=== PATIENT | male | born 1970 | race African-American/Black ===

== ENCOUNTER 2017-04-07 19:36 | Emergency (ER) | payer SELFPAY ==
[2017-04-07] MEDS ORDERED: Lidocaine 1% 20 ML MDV INJECT ONE (21:24)
[2017-04-07] MEDS ORDERED: Acetaminophen/HYDROcodone 325-7.5 MG Tab PO STA (22:03)
--- NOTE | 2017-04-07 22:03 | EDM.PDOC ---
ED HPI GENERAL MEDICAL PROBLEM - General Chief Complaint: Lower Extremity Injury/Pain Stated Complaint: PAIN/SWOLLEN RT FOOT Time Seen by Provider: 04/07/17 22:02 Source of Information: Reports: Patient - History of Present Illness INITIAL COMMENTS - FREE TEXT/NARRATIVE: HISTORY AND PHYSICAL: History of present illness: [Patient presents with right great toe pain, there is mild warmth nor redness some fluctuance over the toe proximal phalanx, denies history of gout. There is some language barrier I did jennifer an area of serious fluid and obtained a wound culture to follow-- No fever nausea vomiting chills sweats he denies trauma, patient denies working outside her getting the foot cold such as frostbite as he has largely been indoors for the last 2 months as he has not been working ] Review of systems: As per history of present illness and below otherwise all systems reviewed and negative. Past medical history: As per history of present illness and as reviewed below otherwise noncontributory. Surgical history: As per history of present illness and as reviewed below otherwise noncontributory. Social history: No reported history of drug or alcohol abuse. Family history: As per history of present illness and as reviewed below otherwise noncontributory. Physical exam: HEENT: Atraumatic, normocephalic, pupils reactive, negative for conjunctival pallor or scleral icterus, mucous membranes moist, throat clear, neck supple, nontender, trachea midline. Lungs: Clear to auscultation, breath sounds equal bilaterally, chest nontender. Heart: S1S2, regular, negative for clicks, rubs, or JVD. Abdomen: Soft, nondistended, nontender. Negative for masses or hepatosplenomegaly. Negative for costovertebral tenderness. Pelvis: Stable nontender. Genitourinary: Deferred. Rectal: Deferred. Extremities: Atraumatic, negative for cords or calf pain. Neurovascular unremarkable. Neuro: Awake, alert, oriented. Cranial nerves II through XII unremarkable. Cerebellum unremarkable. Motor and sensory unremarkable throughout. Exam nonfocal. Skin as per history of present illness otherwise unremarkable Diagnostics: [CBC, uric acid Wound culture X-ray right foot ] Therapeutics: [Carney 7.5 by mouth now Lidocaine 1% Neosporin Telfa bandaging After area is cleansed did jennifer the fluctuant area approximately 1 inch diameter draining serous fluid no exudates, culture was obtained no complication no complaint Bactrim double strength by mouth twice a day #20 no refill Carney 5 per 325 one by mouth every 6 when necessary #20 no refill ] Impression: [Cellulitis] Right great toe pain-uric acid normal Definitive disposition and diagnosis as appropriate pending reevaluation and review of above. right big toe Pain Score (Numeric/FACES): 9 - Related Data Allergies Allergy/AdvReac Type Severity Reaction Status Date / Time No Known Allergies Allergy Verified 04/07/17 20:23 Home Meds: Home Meds . [No Known Home Meds] 04/07/17 [History] Past Medical History - Past Health History Medical/Surgical History: Denies Medical/Surgical History Cardiovascular History: Reports: Hypertension. 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 Musculoskeletal History: Reports: None Psychiatric History: Reports: None Hematologic History: Reports: None Immunologic History: Reports: None Oncologic (Cancer) History: Reports: None Social & Family History - Family History Family Medical History: Noncontributory - Tobacco Use Smoking Status *Q: Never Smoker Second Hand Smoke Exposure: No - Alcohol Use Days Per Week of Alcohol Use: 0 Number of Drinks Per Day: 0 Total Drinks Per Week: 0 - Recreational Drug Use Recreational Drug Use: No Drug Use in Last 12 Months: No Review of Systems - Review of Systems Review Of Systems: ROS reveals no pertinent complaints other than HPI. ED EXAM, GENERAL - Physical Exam Exam: See Below Course - Vital Signs Last Recorded V/S: Last Vital Signs Temp 98 F 04/07/17 19:36 Pulse 88 04/07/17 19:36 Resp 18 04/07/17 19:36 BP 163/92 H 04/07/17 19:36 Pulse Ox 98 04/07/17 19:36 - Orders/Labs/Meds Orders: Active Orders 24 hr Category Date Time Status Foot Comp Min 3V Rt [CR] Stat Exams 04/07/17 20:21 Taken Labs: Laboratory Tests 04/07/17 04/07/17 Range/Units 20:30 20:30 WBC 7.21 (4.0-11.0) K/uL RBC 4.79 (4.50-5.90) M/uL Hgb 13.6 (13.0-17.0) g/dL Hct 40.2 (38.0-50.0) % MCV 83.9 (80.0-98.0) fL MCH 28.4 (27.0-32.0) pg MCHC 33.8 (31.0-37.0) g/dL RDW Std Deviation 45.2 (28.0-62.0) fl RDW Coeff of April 15 (11.0-15.0) % Plt Count 252 (150-400) K/uL MPV 9.50 (7.40-12.00) fL Neut % (Auto) 48.9 (48.0-80.0) % Lymph % (Auto) 40.1 H (16.0-40.0) % Daniels % (Auto) 9.2 (0.0-15.0) % Eos % (Auto) 1.5 (0.0-7.0) % Baso % (Auto) 0.3 (0.0-1.5) % Neut # (Auto) 3.5 (1.4-5.7) K/uL Lymph # (Auto) 2.9 H (0.6-2.4) K/uL Daniels # (Auto) 0.7 (0.0-0.8) K/uL Eos # (Auto) 0.1 (0.0-0.7) K/uL Baso # (Auto) 0.0 (0.0-0.1) K/uL Nucleated RBC % 0.0 /100WBC Nucleated RBCs # 0 K/uL Uric Acid 5.0 (2.6-7.2) mg/dL Meds: Medications Discontinued Medications Generic Name Dose Route Start Last Admin Trade Name Freq PRN Reason Stop Dose Admin Hydrocodone Bitart/Acetaminophen 1 tab 04/07/17 22:03 Carney 325-7.5 Mg PO 04/07/17 22:04 NOW STA Bacitracin 1 dose 04/07/17 22:04 Bacitracin Oint 1 Gm TOP 04/07/17 22:05 ONETIME ONE Lidocaine HCl 20 ml 04/07/17 21:24 04/07/17 22:06 Xylocaine 1% INJECT 04/07/17 21:25 20 ml ONETIME ONE Administration Departure - Departure Time of Disposition: 22:09 Disposition: Home, Self-Care 01 Condition: Good Clinical Impression: Cellulitis - Discharge Information Referrals: PCP,None [Primary Care Provider] - Forms: ED Department Discharge Additional Instructions: Medication as prescribed Return to ER if symptoms persist or worsen Follow-up with primary care Sunday or Sunday ER referral will be provided for primary follow-up [facility] - Primary Care [address] [place] [id number] The following information is given to patients seen in the emergency department who are being discharged to home. This information is to outline your options for follow-up care. We provide all patients seen in our emergency department with a follow-up referral. The need for follow-up, as well as the timing and circumstances, are variable depending upon the specifics of your emergency department visit. If you don't have a primary care physician on staff, we will provide you with a referral. We always advise you to contact your personal physician following an emergency department visit to inform them of the circumstance of the visit and for follow-up with them and/or the need for any referrals to a consulting specialist. The emergency department will also refer you to a specialist when appropriate. This referral assures that you have the opportunity for follow-up care with a specialist. All of these measure are taken in an effort to provide you with optimal care, which includes your follow-up. Under all circumstances we always encourage you to contact your private physician who remains a resource for coordinating your care. When calling for follow-up care, please make the office aware that this follow-up is from your recent emergency room visit. If for any reason you are refused follow-up, please contact the [facility] emergency department at and asked to speak to the emergency department charge nurse. - My Orders Last 24 Hours: My Active Orders 04/07/17 20:21 Foot Comp Min 3V Rt [CR] Stat - Assessment/Plan Last 24 Hours: My Active Orders 04/07/17 20:21 Foot Comp Min 3V Rt [CR] Stat
[2017-04-07] MEDS ORDERED: Bacitracin Oint 1 GM U/D Packet TOP ONE (22:04)
[2017-04-08 01:50] VITALS: BP 149/100
--- NOTE | 2017-04-09 06:34 | CR ---
EXAM DATE: 04/07/17 PATIENT'S AGE: 47 Patient: YUMI WU Facility: [place], [place] Site . Site : [id number] Study: XRay Extremity Right foot [id number] 8:58:09 PM Ordering Physician: Sharon Patel Final Report: Indication: Right foot pain. Technique: Right foot 3 views Comparison: None Findings: Bones: Alignment is normal. No fractures or bone lesions. Joint spaces: Joint spaces are well maintained. No degenerative changes. Soft tissues: Unremarkable. Impression: No findings to explain pain. Dictated by Jesus Huddleston MD @ 04/07/2017 9:08:22 PM Dictated by: Jesus Huddleston MD @ 04/07/2017 21:08:28 (Electronic Signature) Report Signed by Proxy. [facility]
== END 2017-04-07 22:58 | disposition home or self-care (01) ==
LOC: MW.ED 19:36
DX: L03.031 Cellulitis of right toe (principal); I10 Essential (primary) hypertension
CPT/HCPCS: 10060; 36415; 73630; 84550; 85025; 87070; 99283; A9270

== ENCOUNTER 2018-03-12 12:15 | Observation (INO) | payer SELFPAY ==
[2018-03-12] MEDS ORDERED: Diltiazem 25 MG/5 ML SDV IVPUSH ONE ×2 (12:16→12:52)
[2018-03-12] MEDS ORDERED: Sodium Chloride 0.9% 1,000 ML IV ONE ×2 (12:16→13:37)
[2018-03-12] MEDS ORDERED: Aspirin 81 MG Tab.Chew PO ONE (12:16)
[2018-03-12] MEDS ORDERED: Sodium Chloride 0.9% 10 ML Syringe FLUSH PRN ×2 (12:16→19:35)
[2018-03-12] MEDS ORDERED: Sodium Chloride 0.9% 2.5 ML Syringe FLUSH PRN ×2 (12:16→19:35)
--- NOTE | 2018-03-12 12:22 | EDM.PDOC ---
ED HPI GENERAL MEDICAL PROBLEM - General Chief Complaint: Chest Pain Stated Complaint: HEART ISSUES Time Seen by Provider: 03/12/18 12:15 - History of Present Illness INITIAL COMMENTS - FREE TEXT/NARRATIVE: HISTORY AND PHYSICAL: History of present illness: The patient is a 48 y/o male whose only significant past medical history is of a diagnosis of a positive PPD with a negative chest x-ray for which she was treated with medication and has finished that treatment and according to our medical records from employee health he TB treated, and 2 presents today with acute onset of palpitations and heart fluttering that made him feel lightheaded like he was going to pass out approximately an hour and a half ago. The patient said he was at work and having no systemic complaints or issues when this started suddenly. He doesn't say that his chest was really hurts he does feels like his heart is coming out of his chest because it is going fast and it is beating irregularly. He's never had this before. He has no shortness of breath nausea or diaphoresis no abdominal pain. The patient says that he has not been eating over the last 3 days but has been hydrating and he has not had much of an appetite because his sister about a week ago and she was very young. Patient denies social history. Since medical record that nursing has accessed he has had a workup for chest pain in the past although we are unsure when, at [place] and that was negative. The patient did not tell me this history. He has not had any recent cough runny nose sore throat or fevers. He says he's been having some dental pain on the right premolar and molar area but he has not seen a dentist for that and he doesn't have any facial swelling. Review of systems: As per history of present illness and below otherwise all systems reviewed and negative. Past medical history: As per history of present illness and as reviewed below otherwise noncontributory. Surgical history: As per history of present illness and as reviewed below otherwise noncontributory. Social history: No reported history of drug or alcohol abuse. Family history: As per history of present illness and as reviewed below otherwise noncontributory. Physical exam: General: Well-developed well-nourished man who is nontoxic and vital signs were noted by me. HEENT: Atraumatic, normocephalic, pupils reactive, negative for conjunctival pallor or scleral icterus, mucous membranes moist, throat clear, neck supple, nontender, trachea midline. There is no evidence of any facial swelling or jaw swelling on the right side and I do not appreciate any dental disease or dental decay or gum swelling on the right lower premolar and molar areas. It is uncomfortable. He has no cervical adenopathy no thyromegaly Lungs: Clear to auscultation, breath sounds equal bilaterally, chest nontender. Heart: S1S2, irregularly irregular tachycardic rhythm with PVCs and irregularities appreciated, no overt murmur but heart rate is very fast and difficult to appreciate Abdomen: Soft, nondistended, nontender. Negative for masses or hepatosplenomegaly. Negative for costovertebral tenderness. Pelvis: Stable nontender. Genitourinary: Deferred. Rectal: Deferred. Extremities: Atraumatic, negative for cords or calf pain. Neurovascular unremarkable. No pedal edema or leg asymmetry Neuro: Awake, alert, oriented. Cranial nerves II through XII unremarkable. Cerebellum unremarkable. Motor and sensory unremarkable throughout. Exam nonfocal. Diagnostics: EKG 2 chest x-ray CBC CMP TSH troponin INR magnesium UDS Therapeutics: IV O2 monitor IV fluids aspirin and Cardizem lovenox Patient's heart rate is 113 after the first dose of Cardizem 10 mg. We will give a second dose and reevaluate. I went to reevaluate the patient personally and to discuss with him what atrial fibrillation is and his heart rate is running 120s to 1:30. I will give the second dose of Cardizem as it has not been given yet and reevaluate for Cardizem drip. After the second dose of Cardizem patient's heart rate is 99-103 on my reevaluation. I will discuss this case with the hospitalist and decide if he would like to do oral meds or start IV Cardizem. 1322: This is discussed with Dr. Saini hospitalists would like to start a Cardizem drip even though his rate has been controlled with boluses of Cardizem. I will follow-up on the chest x-ray results as it becomes available and the patient has not given a urine sample for UDS that the hospitalist is aware. Impression: New A. fib with RVR Definitive disposition and diagnosis as appropriate pending reevaluation and review of above. - Related Data Allergies Allergy/AdvReac Type Severity Reaction Status Date / Time No Known Allergies Allergy Verified 03/12/18 12:15 Home Meds: Home Meds . [No Known Home Meds] 04/07/17 [History] Past Medical History - Past Health History Medical/Surgical History: Denies Medical/Surgical History Cardiovascular History: Reports: Hypertension. 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 ED EXAM, GENERAL - Physical Exam Exam: See Below (See dictation) Course - Vital Signs Last Recorded V/S: Last Vital Signs Temp 36.6 C 03/12/18 12:16 Pulse 103 H 03/12/18 13:02 Resp 22 H 03/12/18 13:02 BP 114/72 03/12/18 13:02 Pulse Ox 98 03/12/18 13:02 - Orders/Labs/Meds Orders: Active Orders 24 hr Category Date Time Status Patient Status [ADT] Stat ADT 03/12/18 13:22 Ordered Cardiac Monitoring [RC] . DIRECTED Care 03/12/18 12:16 Active EKG Documentation Completion [RC] STAT Care 03/12/18 12:16 Active Oxygen Therapy, ED [RC] ASDIRECTED Care 03/12/18 12:15 Active Pulse Oximetry [RC] ASDIRECTED Care 03/12/18 12:16 Active DRUG SCREEN, URINE [URCHEM] Stat Lab 03/12/18 12:16 Ordered Diltiazem 125 mg Med 03/12/18 13:30 Ordered Sodium Chloride 0.9% [Normal Saline] 100 ml IV NOW Sodium Chloride 0.9% [Saline Flush] Med 03/12/18 12:16 Active 10 ml FLUSH ASDIRECTED PRN Sodium Chloride 0.9% [Saline Flush] Med 03/12/18 12:16 Active 2.5 ml FLUSH ASDIRECTED PRN Saline Lock Insert [OM.PC] Stat Oth 03/12/18 12:15 Ordered Medication Orders Diltiazem HCl 125 mg/ Sodium (Chloride) 125 mls @ 10 mls/hr IV NOW DESMOND; Protocol Sodium Chloride (Saline Flush) 10 ml FLUSH ASDIRECTED PRN PRN Reason: Keep Vein Open Sodium Chloride (Saline Flush) 2.5 ml FLUSH ASDIRECTED PRN PRN Reason: Keep Vein Open Labs: Laboratory Tests 03/12/18 03/12/18 03/12/18 Range/Units 12:20 12:20 12:20 WBC 4.95 (4.0-11.0) K/uL RBC 5.56 (4.50-5.90) M/uL Hgb 15.9 (13.0-17.0) g/dL Hct 46.6 (38.0-50.0) % MCV 83.8 (80.0-98.0) fL MCH 28.6 (27.0-32.0) pg MCHC 34.1 (31.0-37.0) g/dL RDW Std Deviation 46.7 (28.0-62.0) fl RDW Coeff of April 15 (11.0-15.0) % Plt Count 182 (150-400) K/uL MPV 10.30 (7.40-12.00) fL Neut % (Auto) 34.8 L (48.0-80.0) % Lymph % (Auto) 49.5 H (16.0-40.0) % [facility] [facility] % (Auto) 13.9 (0.0-15.0) % Eos % (Auto) 1.2 (0.0-7.0) % Baso % (Auto) 0.6 (0.0-1.5) % Neut # (Auto) 1.7 (1.4-5.7) K/uL Lymph # (Auto) 2.5 H (0.6-2.4) K/uL [facility] # (Auto) 0.7 (0.0-0.8) K/uL Eos # (Auto) 0.1 (0.0-0.7) K/uL Baso # (Auto) 0.0 (0.0-0.1) K/uL Nucleated RBC % 0.0 /100WBC Nucleated RBCs # 0 K/uL INR 1.01 Sodium 139 (136-148) mmol/L Potassium 3.1 L (3.5-5.1) mmol/L Chloride 101 (98-107) mmol/L Carbon Dioxide 28.9 (21.0-32.0) mmol/L BUN 15 (7.0-18.0) mg/dL Creatinine 1.5 H (0.8-1.3) mg/dL Est Cr Clr Drug Dosing 69.54 mL/min Estimated GFR (MDRD) > 60.0 ml/min Glucose 125 H (74-106) mg/dL Calcium 9.5 (8.5-10.1) mg/dL Magnesium 2.2 (1.8-2.4) mg/dL Total Bilirubin 1.9 H (0.2-1.0) mg/dL AST 30 (15-37) IU/L ALT 37 (14-63) IU/L Alkaline Phosphatase 65 (46-116) U/L Troponin I < 0.050 (0.000-0.056) ng/mL Total Protein 8.6 H (6.4-8.2) g/dL Albumin 4.2 (3.4-5.0) g/dL Globulin 4.4 H (2.6-4.0) g/dL Albumin/Globulin Ratio 1.0 (0.9-1.6) TSH 3rd Generation 1.18 (0.36-3.74) uIU/mL Meds: Medications Generic Name Dose Route Start Last Admin Trade Name Freq PRN Reason Stop Dose Admin Diltiazem HCl 125 mg/ Sodium 125 mls @ 10 mls/hr 03/12/18 13:30 Chloride IV NOW DESMOND Protocol 10 MG/HR Sodium Chloride 10 ml 03/12/18 12:16 Saline Flush FLUSH ASDIRECTED PRN Keep Vein Open Sodium Chloride 2.5 ml 03/12/18 12:16 Saline Flush FLUSH ASDIRECTED PRN Keep Vein Open Discontinued Medications Generic Name Dose Route Start Last Admin Trade Name Freq PRN Reason Stop Dose Admin Aspirin 324 mg 03/12/18 12:16 03/12/18 12:26 Aspirin PO 03/12/18 12:17 324 mg ONETIME ONE Administration Diltiazem HCl 10 mg 03/12/18 12:16 03/12/18 12:29 Diltiazem IVPUSH 03/12/18 12:17 10 mg ONETIME ONE Administration Diltiazem HCl 10 mg 03/12/18 12:52 03/12/18 13:01 Diltiazem IVPUSH 03/12/18 12:53 10 mg ONETIME ONE Administration Enoxaparin Sodium 80 mg 03/12/18 12:53 03/12/18 13:03 Lovenox SUBCUT 03/12/18 12:54 80 mg ONETIME ONE Administration Sodium Chloride 1,000 mls @ 999 mls/hr 03/12/18 12:16 03/12/18 12:27 Normal Saline IV 03/12/18 13:16 999 mls/hr STAT ONE Administration Departure - Departure Time of Disposition: 13:24 Disposition: Refer to Observation Condition: Good Clinical Impression: Atrial fibrillation with RVR - Discharge Information Forms: ED Department Discharge - My Orders Last 24 Hours: My Active Orders 03/12/18 12:15 Oxygen Therapy, ED [RC] ASDIRECTED Saline Lock Insert [OM.PC] Stat 03/12/18 12:16 Cardiac Monitoring [RC] . DIRECTED EKG Documentation Completion [RC] STAT Pulse Oximetry [RC] ASDIRECTED DRUG SCREEN, URINE [URCHEM] Stat Sodium Chloride 0.9% [Saline Flush] 10 ml FLUSH ASDIRECTED PRN Sodium Chloride 0.9% [Saline Flush] 2.5 ml FLUSH ASDIRECTED PRN 03/12/18 13:22 Patient Status [ADT] Stat 03/12/18 13:30 Diltiazem 125 mg Sodium Chloride 0.9% [Normal Saline] 100 ml IV NOW - Assessment/Plan Last 24 Hours: My Active Orders 03/12/18 12:15 Oxygen Therapy, ED [RC] ASDIRECTED Saline Lock Insert [OM.PC] Stat 03/12/18 12:16 Cardiac Monitoring [RC] . DIRECTED EKG Documentation Completion [RC] STAT Pulse Oximetry [RC] ASDIRECTED DRUG SCREEN, URINE [URCHEM] Stat Sodium Chloride 0.9% [Saline Flush] 10 ml FLUSH ASDIRECTED PRN Sodium Chloride 0.9% [Saline Flush] 2.5 ml FLUSH ASDIRECTED PRN 03/12/18 13:22 Patient Status [ADT] Stat 03/12/18 13:30 Diltiazem 125 mg Sodium Chloride 0.9% [Normal Saline] 100 ml IV NOW
[2018-03-12] MEDS ORDERED: Enoxaparin 100 MG/1 ML Syringe SUBCUT ONE (12:53)
[2018-03-12 13:09] LABS: CHLORIDE,CL 101 mmol/L (98-107); SODIUM,NA 139 mmol/L (136-148)
--- NOTE | 2018-03-12 13:21 | CR ---
EXAMINATION: Portable chest radiograph. HISTORY: Shortness of breath. FINDINGS: The trachea is midline. The cardiomediastinal silhouette is within normal limits. No pulmonary infiltrates, effusions or pneumothorax. Osseous structures appear unremarkable. IMPRESSION: No acute cardiopulmonary process.
[2018-03-12] MEDS ORDERED: Diltiazem 125 MG in Sodium Chloride 0.9% 100 ML IV SCH (13:30)
[2018-03-12] MEDS ORDERED: Diltiazem 100 MG in Sodium Chloride 0.9% 100 ML IV SCH (13:31)
[2018-03-12] MEDS ORDERED: Ondansetron 4 MG/2 ML SDV IVPUSH PRN (15:15)
[2018-03-12] MEDS ORDERED: Acetaminophen 325 MG Tab PO PRN (15:15)
[2018-03-12] MEDS ORDERED: Potassium Chloride 10% 20 MEQ/15 ML Soln 30 ML UD Cup PO ONE (15:23)
--- NOTE | 2018-03-12 15:54 | PCM.HP ---
<Moises Magallanes - Last Filed: 03/12/18 15:58> H&P History of Present Illness - General Date of Service: 03/12/18 Admit Problem/Dx: Admission Diagnosis/Problem Admission Diagnosis/Problem Atrial fibrillation Source of Information: Patient History Limitations: Reports: No Limitations - History of Present Illness Initial Comments - Free Text/Narative: 48M AA w/ no significant past medical history presented to the ER with complaints of acute onset palpitations and having "heart pain" that began today at approximately 11AM. Patient also endorses feeling lightheaded but denies syncope. ER course: EKG - A. Fib w/ RVR HR - 100-150s Troponin - negative CBC - unremarkable CMP - hypokalemia w/ K+ 3.1 Magnesium unremarkable TSH unremarkable CXR unremarkable Patient denies any tobacco use, cardiac history, illicit drug use. As per old charting, patient has a recent hx of latent TB that was medically treated and he has completed therapy for it. - Related Data Allergies/Adverse Reactions: Allergies Allergy/AdvReac Type Severity Reaction Status Date / Time No Known Allergies Allergy Verified 03/12/18 12:15 Home Medications: Home Meds . [No Known Home Meds] 04/07/17 [History] Past Medical History - Past Health History Medical/Surgical History: Denies Medical/Surgical History Cardiovascular History: Reports: Hypertension. Denies: High Cholesterol, [place] Other Cardiovascular History: recently was worked up for chest pain at [place], he reports they didn't "find anything" Respiratory History: Reports: Other (See Below) Other Respiratory History: Latent TB- treatment 1 year ago Gastrointestinal History: Reports: None Genitourinary History: Reports: None CAR MANAGER History: Reports: None Musculoskeletal History: Reports: None Psychiatric History: Reports: None Hematologic History: Reports: None Immunologic History: Reports: None Oncologic (Cancer) History: Reports: None - Infectious Disease History Infectious Disease History: Reports: TB Other Infectious Disease History: latent TB treatment 1 year ago Social & Family History - Family History Family Medical History: Noncontributory - Tobacco Use Smoking Status *Q: Never Smoker - Caffeine Use Caffeine Use: Reports: None - Recreational Drug Use Recreational Drug Use: Yes Recreational Drug Use Frequency: Rarely H&P Review of Systems - Review of Systems: Review Of Systems: See Below General: Reports: Other (see hpi) Pulmonary: Reports: Shortness of Breath. Denies: Cough, Hemoptysis Cardiovascular: Reports: Chest Pain, Palpitations, Lightheadedness. Denies: Syncope Gastrointestinal: Reports: No Symptoms Genitourinary: Reports: No Symptoms Skin: Reports: No Symptoms Psychiatric: Reports: No Symptoms Neurological: Reports: No Symptoms Hematologic/Lymphatic: Reports: No Symptoms Immunologic: Reports: No Symptoms Exam - Exam Exam: See Below - Vital Signs Vital Signs: Last Vital Signs Temp 36.7 C 03/12/18 15:29 Pulse 97 03/12/18 15:29 Resp 22 H 03/12/18 15:29 BP 112/67 03/12/18 15:29 Pulse Ox 97 03/12/18 15:29 Weight: 81.647 kg - Exam General: Alert, Oriented HEENT: Conjunctiva Clear Neck: Supple, Trachea Midline, 2 Lungs: Clear to Auscultation, Other (mild tachypnea) Cardiovascular: Irregular Rhythm, Tachycardia GI/Abdominal Exam: Normal Bowel Sounds, Soft, Non-Tender, No Organomegaly, No Distention, No Abnormal Bruit, No Mass Back Exam: Normal Inspection, Full Range of Motion, NT Extremities: Normal Inspection, Normal Range of Motion, Non-Tender, No Pedal Edema, Normal Capillary Refill Peripheral Pulses: 2+: Dorsalis Pedis (L), Dorsalis Pedis (R) Skin: Warm, Dry, Intact Neurological: Cranial Nerves Intact, Reflexes Equal Bilateral Neuro Extensive - Mental Status: Alert, Oriented x3, Normal Mood/Affect, Normal Cognition Neuro Extensive - Motor, Sensory, Reflexes: CN II-XII Intact, Normal Gait, Normal Reflexes Psychiatric: Alert, Normal Affect, Normal Mood - Patient Data Lab Results Last 24 hrs: Laboratory Results - last 24 hr 03/12/18 03/12/18 03/12/18 Range/Units 12:20 12:20 12:20 WBC 4.95 (4.0-11.0) K/uL RBC 5.56 (4.50-5.90) M/uL Hgb 15.9 (13.0-17.0) g/dL Hct 46.6 (38.0-50.0) % MCV 83.8 (80.0-98.0) fL MCH 28.6 (27.0-32.0) pg MCHC 34.1 (31.0-37.0) g/dL RDW Std Deviation 46.7 (28.0-62.0) fl RDW Coeff of April 15 (11.0-15.0) % Plt Count 182 (150-400) K/uL MPV 10.30 (7.40-12.00) fL Neut % (Auto) 34.8 L (48.0-80.0) % Lymph % (Auto) 49.5 H (16.0-40.0) % Charlton % (Auto) 13.9 (0.0-15.0) % Eos % (Auto) 1.2 (0.0-7.0) % Baso % (Auto) 0.6 (0.0-1.5) % Neut # (Auto) 1.7 (1.4-5.7) K/uL Lymph # (Auto) 2.5 H (0.6-2.4) K/uL Charlton # (Auto) 0.7 (0.0-0.8) K/uL Eos # (Auto) 0.1 (0.0-0.7) K/uL Baso # (Auto) 0.0 (0.0-0.1) K/uL Nucleated RBC % 0.0 /100WBC Nucleated RBCs # 0 K/uL INR 1.01 Sodium 139 (136-148) mmol/L Potassium 3.1 L (3.5-5.1) mmol/L Chloride 101 (98-107) mmol/L Carbon Dioxide 28.9 (21.0-32.0) mmol/L BUN 15 (7.0-18.0) mg/dL Creatinine 1.5 H (0.8-1.3) mg/dL Est Cr Clr Drug Dosing 69.54 mL/min Estimated GFR (MDRD) > 60.0 ml/min Glucose 125 H (74-106) mg/dL Calcium 9.5 (8.5-10.1) mg/dL Magnesium 2.2 (1.8-2.4) mg/dL Total Bilirubin 1.9 H (0.2-1.0) mg/dL AST 30 (15-37) IU/L ALT 37 (14-63) IU/L Alkaline Phosphatase 65 (46-116) U/L Troponin I < 0.050 (0.000-0.056) ng/mL Total Protein 8.6 H (6.4-8.2) g/dL Albumin 4.2 (3.4-5.0) g/dL Globulin 4.4 H (2.6-4.0) g/dL Albumin/Globulin Ratio 1.0 (0.9-1.6) TSH 3rd Generation 1.18 (0.36-3.74) uIU/mL Result Diagrams: 03/12/18 12:20 03/12/18 12:20 Problem List Initiated/Reviewed/Updated: Yes Orders Last 24hrs: Active Orders 24 hr Category Date Time Status Patient Status [ADT] Stat ADT 03/12/18 13:22 Active Antiembolic Devices [RC] PER UNIT ROUTINE Care 03/12/18 15:17 Active Cardiac Monitoring [RC] . DIRECTED Care 03/12/18 12:16 Active Oxygen Therapy [RC] PRN Care 03/12/18 15:15 Active Oxygen Therapy, ED [RC] ASDIRECTED Care 03/12/18 12:15 Active Pulse Oximetry [RC] ASDIRECTED Care 03/12/18 12:16 Active Up ad Nazanin [RC] ASDIRECTED Care 03/12/18 15:15 Active VTE/DVT Education [RC] PER UNIT ROUTINE Care 03/12/18 15:15 Active Vital Signs [RC] Q1H Care 03/12/18 15:15 Active Heart Healthy Diet [DIET] Diet 03/12/18 Dinner Active CBC W/O DIFF,HEMOGRAM [HEME] AM Lab 03/13/18 05:11 Ordered COMPREHENSIVE METABOLIC PN,CMP [CHEM] AM Lab 03/13/18 05:11 Ordered DRUG SCREEN, URINE [URCHEM] Stat Lab 03/12/18 12:16 Ordered MAGNESIUM [CHEM] AM Lab 03/13/18 05:11 Ordered Acetaminophen [Tylenol] Med 03/12/18 15:15 Active 650 mg PO Q4H PRN Diltiazem [Cardizem] 100 mg Med 03/12/18 13:31 Active Sodium Chloride 0.9% [Normal Saline] 100 ml IV NOW Enoxaparin [Lovenox] Med 03/13/18 15:15 Active 40 mg SUBCUT Q24H Ondansetron [Zofran] Med 03/12/18 15:15 Active 4 mg IVPUSH Q4H PRN Sodium Chloride 0.9% [Normal Saline] 1,000 ml Med 03/12/18 13:37 Active IV .Bolus Sodium Chloride 0.9% [Saline Flush] Med 03/12/18 12:16 Active 10 ml FLUSH ASDIRECTED PRN Sodium Chloride 0.9% [Saline Flush] Med 03/12/18 12:16 Active 2.5 ml FLUSH ASDIRECTED PRN Saline Lock Insert [OM.PC] Stat Oth 03/12/18 12:15 Ordered Sequential Compression Device [OM.PC] Per Unit Routine Oth 03/12/18 15:16 Ordered Resuscitation Status Routine Resus Stat 03/12/18 15:15 Ordered Medication Orders Acetaminophen (Tylenol) 650 mg PO Q4H PRN PRN Reason: Pain (Mild 1-3)/fever Enoxaparin Sodium (Lovenox) 40 mg SUBCUT Q24H DESMOND Diltiazem HCl 100 mg/ Sodium (Chloride) 100 mls @ 10 mls/hr IV NOW DESMOND; Protocol Last Titration: 03/12/18 15:35 Dose: 5 mg/hr, 5 mls/hr Admin: 03/12/18 13:40 Dose: 10 mg/hr, 10 mls/hr Sodium Chloride (Normal Saline) 1,000 mls @ 125 mls/hr IV .Bolus ONE Stop: 03/12/18 21:36 Last Admin: 03/12/18 13:39 Dose: 125 mls/hr Ondansetron HCl (Zofran) 4 mg IVPUSH Q4H PRN PRN Reason: Nausea Sodium Chloride (Saline Flush) 10 ml FLUSH ASDIRECTED PRN PRN Reason: Keep Vein Open Sodium Chloride (Saline Flush) 2.5 ml FLUSH ASDIRECTED PRN PRN Reason: Keep Vein Open Assessment/Plan Comment:: Assessment: #1. New onset Atrial fibrillation w/ RVR #2. Palpitations secondary to #1 #3. Hypokalemia #4. History of recently treated latent TB Plan: #1. Admit to ICU. Vitals per floor. Cardiac telemetry. Lovenox for DVT Prophylaxis. Cardiac diet w/ no caffeine. #2. Cardizem drip - follow protocol #3. Consult cardiology #4. KCl 40meq PO x1 #5. CBC, CMP, magnesium tomorrow AM #6. f/u on urine drug screen #7. troponin q6h x2 <Chad Reyes - Last Filed: 03/13/18 12:04> H&P History of Present Illness - General Admit Problem/Dx: Admission Diagnosis/Problem Admission Diagnosis/Problem Atrial fibrillation I have seen and examined the patient independently of Moises Magallanes MD,durable medical equipment repairer. I have discussed the case with him. I agree with the assessment and plan of care outlined by durable medical equipment repairer. Please see orders. Chest Pain Score (Numeric/FACES): 0 Exam - Vital Signs Vital Signs: Last Vital Signs Temp 36.9 C 03/13/18 08:00 Pulse 96 03/13/18 11:00 Resp 17 03/13/18 11:00 BP 103/74 03/13/18 11:00 Pulse Ox 100 03/13/18 11:00 - Patient Data Lab Results Last 24 hrs: Laboratory Results - last 24 hr 03/12/18 03/12/18 03/12/18 Range/Units 12:20 12:20 12:20 WBC 4.95 (4.0-11.0) K/uL RBC 5.56 (4.50-5.90) M/uL Hgb 15.9 (13.0-17.0) g/dL Hct 46.6 (38.0-50.0) % MCV 83.8 (80.0-98.0) fL MCH 28.6 (27.0-32.0) pg MCHC 34.1 (31.0-37.0) g/dL RDW Std Deviation 46.7 (28.0-62.0) fl RDW Coeff of April 15 (11.0-15.0) % Plt Count 182 (150-400) K/uL MPV 10.30 (7.40-12.00) fL Neut % (Auto) 34.8 L (48.0-80.0) % Lymph % (Auto) 49.5 H (16.0-40.0) % Charlton % (Auto) 13.9 (0.0-15.0) % Eos % (Auto) 1.2 (0.0-7.0) % Baso % (Auto) 0.6 (0.0-1.5) % Neut # (Auto) 1.7 (1.4-5.7) K/uL Lymph # (Auto) 2.5 H (0.6-2.4) K/uL Charlton # (Auto) 0.7 (0.0-0.8) K/uL Eos # (Auto) 0.1 (0.0-0.7) K/uL Baso # (Auto) 0.0 (0.0-0.1) K/uL Nucleated RBC % 0.0 /100WBC Nucleated RBCs # 0 K/uL INR 1.01 D-Dimer, Quantitative (0.0-0.50) mg/L FEU Sodium 139 (136-148) mmol/L Potassium 3.1 L (3.5-5.1) mmol/L Chloride 101 (98-107) mmol/L Carbon Dioxide 28.9 (21.0-32.0) mmol/L BUN 15 (7.0-18.0) mg/dL Creatinine 1.5 H (0.8-1.3) mg/dL Est Cr Clr Drug Dosing 69.54 mL/min Estimated GFR (MDRD) > 60.0 ml/min Glucose 125 H (74-106) mg/dL Hemoglobin A1c (4.5-6.2) % Calcium 9.5 (8.5-10.1) mg/dL Magnesium 2.2 (1.8-2.4) mg/dL Total Bilirubin 1.9 H (0.2-1.0) mg/dL AST 30 (15-37) IU/L ALT 37 (14-63) IU/L Alkaline Phosphatase 65 (46-116) U/L Troponin I < 0.050 (0.000-0.056) ng/mL Total Protein 8.6 H (6.4-8.2) g/dL Albumin 4.2 (3.4-5.0) g/dL Globulin 4.4 H (2.6-4.0) g/dL Albumin/Globulin Ratio 1.0 (0.9-1.6) Triglycerides (0-200) mg/dL Cholesterol (50-200) mg/dL LDL Cholesterol, Calc (60-180) mg/dL VLDL Cholesterol (5-55) mg/dL HDL Cholesterol (40-60) mg/dL Cholesterol/HDL Ratio (3.3-6.0) TSH 3rd Generation 1.18 (0.36-3.74) uIU/mL Urine Opiates Screen (NEGATIVE) Ur Oxycodone Screen (NEGATIVE) Urine Methadone Screen (NEGATIVE) Ur Barbiturates Screen (NEGATIVE) Ur Phencyclidine Scrn (NEGATIVE) Ur Amphetamine Screen (NEGATIVE) U Methamphetamines Scrn (NEGATIVE) U Benzodiazepines Scrn (NEGATIVE) U Cocaine Metab Screen (NEGATIVE) U Marijuana (THC) Screen (NEGATIVE) 03/12/18 03/12/18 03/12/18 Range/Units 18:43 19:15 19:24 WBC (4.0-11.0) K/uL RBC (4.50-5.90) M/uL Hgb (13.0-17.0) g/dL Hct (38.0-50.0) % MCV (80.0-98.0) fL MCH (27.0-32.0) pg MCHC (31.0-37.0) g/dL RDW Std Deviation (28.0-62.0) fl RDW Coeff of April (11.0-15.0) % Plt Count (150-400) K/uL MPV (7.40-12.00) fL Neut % (Auto) (48.0-80.0) % Lymph % (Auto) (16.0-40.0) % Charlton % (Auto) (0.0-15.0) % Eos % (Auto) (0.0-7.0) % Baso % (Auto) (0.0-1.5) % Neut # (Auto) (1.4-5.7) K/uL Lymph # (Auto) (0.6-2.4) K/uL Charlton # (Auto) (0.0-0.8) K/uL Eos # (Auto) (0.0-0.7) K/uL Baso # (Auto) (0.0-0.1) K/uL Nucleated RBC % /100WBC Nucleated RBCs # K/uL INR D-Dimer, Quantitative < 0.19 (0.0-0.50) mg/L FEU Sodium (136-148) mmol/L Potassium (3.5-5.1) mmol/L Chloride (98-107) mmol/L Carbon Dioxide (21.0-32.0) mmol/L BUN (7.0-18.0) mg/dL Creatinine (0.8-1.3) mg/dL Est Cr Clr Drug Dosing mL/min Estimated GFR (MDRD) ml/min Glucose (74-106) mg/dL Hemoglobin A1c (4.5-6.2) % Calcium (8.5-10.1) mg/dL Magnesium (1.8-2.4) mg/dL Total Bilirubin (0.2-1.0) mg/dL AST (15-37) IU/L ALT (14-63) IU/L Alkaline Phosphatase (46-116) U/L Troponin I < 0.050 (0.000-0.056) ng/mL Total Protein (6.4-8.2) g/dL Albumin (3.4-5.0) g/dL Globulin (2.6-4.0) g/dL Albumin/Globulin Ratio (0.9-1.6) Triglycerides (0-200) mg/dL Cholesterol (50-200) mg/dL LDL Cholesterol, Calc (60-180) mg/dL VLDL Cholesterol (5-55) mg/dL HDL Cholesterol (40-60) mg/dL Cholesterol/HDL Ratio (3.3-6.0) TSH 3rd Generation (0.36-3.74) uIU/mL Urine Opiates Screen POSITIVE (NEGATIVE) Ur Oxycodone Screen NEGATIVE (NEGATIVE) Urine Methadone Screen NEGATIVE (NEGATIVE) Ur Barbiturates Screen NEGATIVE (NEGATIVE) Ur Phencyclidine Scrn NEGATIVE (NEGATIVE) Ur Amphetamine Screen NEGATIVE (NEGATIVE) U Methamphetamines Scrn NEGATIVE (NEGATIVE) U Benzodiazepines Scrn NEGATIVE (NEGATIVE) U Cocaine Metab Screen NEGATIVE (NEGATIVE) U Marijuana (THC) Screen NEGATIVE (NEGATIVE) 03/13/18 03/13/18 03/13/18 Range/Units 00:23 05:23 05:23 WBC 3.17 L (4.0-11.0) K/uL RBC 5.10 (4.50-5.90) M/uL Hgb 14.3 (13.0-17.0) g/dL Hct 42.7 (38.0-50.0) % MCV 83.7 (80.0-98.0) fL MCH 28.0 (27.0-32.0) pg MCHC 33.5 (31.0-37.0) g/dL RDW Std Deviation 46.1 (28.0-62.0) fl RDW Coeff of April 15 (11.0-15.0) % Plt Count 161 (150-400) K/uL MPV 9.70 (7.40-12.00) fL Neut % (Auto) (48.0-80.0) % Lymph % (Auto) (16.0-40.0) % Charlton % (Auto) (0.0-15.0) % Eos % (Auto) (0.0-7.0) % Baso % (Auto) (0.0-1.5) % Neut # (Auto) (1.4-5.7) K/uL Lymph # (Auto) (0.6-2.4) K/uL Charlton # (Auto) (0.0-0.8) K/uL Eos # (Auto) (0.0-0.7) K/uL Baso # (Auto) (0.0-0.1) K/uL Nucleated RBC % 0.0 /100WBC Nucleated RBCs # 0 K/uL INR D-Dimer, Quantitative (0.0-0.50) mg/L FEU Sodium 141 (136-148) mmol/L Potassium 3.6 (3.5-5.1) mmol/L Chloride 107 (98-107) mmol/L Carbon Dioxide 24.4 (21.0-32.0) mmol/L BUN 15 (7.0-18.0) mg/dL Creatinine 1.2 (0.8-1.3) mg/dL Est Cr Clr Drug Dosing 86.51 mL/min Estimated GFR (MDRD) > 60.0 ml/min Glucose 114 H (74-106) mg/dL Hemoglobin A1c (4.5-6.2) % Calcium 8.8 (8.5-10.1) mg/dL Magnesium 2.0 (1.8-2.4) mg/dL Total Bilirubin 0.6 (0.2-1.0) mg/dL AST 20 (15-37) IU/L ALT 26 (14-63) IU/L Alkaline Phosphatase 53 (46-116) U/L Troponin I < 0.050 (0.000-0.056) ng/mL Total Protein 6.7 (6.4-8.2) g/dL Albumin 3.1 L (3.4-5.0) g/dL Globulin 3.6 (2.6-4.0) g/dL Albumin/Globulin Ratio 0.9 (0.9-1.6) Triglycerides (0-200) mg/dL Cholesterol (50-200) mg/dL LDL Cholesterol, Calc (60-180) mg/dL VLDL Cholesterol (5-55) mg/dL HDL Cholesterol (40-60) mg/dL Cholesterol/HDL Ratio (3.3-6.0) TSH 3rd Generation (0.36-3.74) uIU/mL Urine Opiates Screen (NEGATIVE) Ur Oxycodone Screen (NEGATIVE) Urine Methadone Screen (NEGATIVE) Ur Barbiturates Screen (NEGATIVE) Ur Phencyclidine Scrn (NEGATIVE) Ur Amphetamine Screen (NEGATIVE) U Methamphetamines Scrn (NEGATIVE) U Benzodiazepines Scrn (NEGATIVE) U Cocaine Metab Screen (NEGATIVE) U Marijuana (THC) Screen (NEGATIVE) 03/13/18 03/13/18 Range/Units 05:23 05:23 WBC (4.0-11.0) K/uL RBC (4.50-5.90) M/uL Hgb (13.0-17.0) g/dL Hct (38.0-50.0) % MCV (80.0-98.0) fL MCH (27.0-32.0) pg MCHC (31.0-37.0) g/dL RDW Std Deviation (28.0-62.0) fl RDW Coeff of April (11.0-15.0) % Plt Count (150-400) K/uL MPV (7.40-12.00) fL Neut % (Auto) (48.0-80.0) % Lymph % (Auto) (16.0-40.0) % Charlton % (Auto) (0.0-15.0) % Eos % (Auto) (0.0-7.0) % Baso % (Auto) (0.0-1.5) % Neut # (Auto) (1.4-5.7) K/uL Lymph # (Auto) (0.6-2.4) K/uL Charlton # (Auto) (0.0-0.8) K/uL Eos # (Auto) (0.0-0.7) K/uL Baso # (Auto) (0.0-0.1) K/uL Nucleated RBC % /100WBC Nucleated RBCs # K/uL INR D-Dimer, Quantitative (0.0-0.50) mg/L FEU Sodium (136-148) mmol/L Potassium (3.5-5.1) mmol/L Chloride (98-107) mmol/L Carbon Dioxide (21.0-32.0) mmol/L BUN (7.0-18.0) mg/dL Creatinine (0.8-1.3) mg/dL Est Cr Clr Drug Dosing mL/min Estimated GFR (MDRD) ml/min Glucose (74-106) mg/dL Hemoglobin A1c 6.3 H (4.5-6.2) % Calcium (8.5-10.1) mg/dL Magnesium (1.8-2.4) mg/dL Total Bilirubin (0.2-1.0) mg/dL AST (15-37) IU/L ALT (14-63) IU/L Alkaline Phosphatase (46-116) U/L Troponin I (0.000-0.056) ng/mL Total Protein (6.4-8.2) g/dL Albumin (3.4-5.0) g/dL Globulin (2.6-4.0) g/dL Albumin/Globulin Ratio (0.9-1.6) Triglycerides 121 (0-200) mg/dL Cholesterol 242 H (50-200) mg/dL LDL Cholesterol, Calc 158 (60-180) mg/dL VLDL Cholesterol 24 (5-55) mg/dL HDL Cholesterol 60 (40-60) mg/dL Cholesterol/HDL Ratio 4.0 (3.3-6.0) TSH 3rd Generation (0.36-3.74) uIU/mL Urine Opiates Screen (NEGATIVE) Ur Oxycodone Screen (NEGATIVE) Urine Methadone Screen (NEGATIVE) Ur Barbiturates Screen (NEGATIVE) Ur Phencyclidine Scrn (NEGATIVE) Ur Amphetamine Screen (NEGATIVE) U Methamphetamines Scrn (NEGATIVE) U Benzodiazepines Scrn (NEGATIVE) U Cocaine Metab Screen (NEGATIVE) U Marijuana (THC) Screen (NEGATIVE) Result Diagrams: 03/13/18 05:23 03/13/18 05:23 Orders Last 24hrs: Active Orders 24 hr Category Date Time Status Patient Status [ADT] Stat ADT 03/12/18 13:22 Active Antiembolic Devices [RC] PER UNIT ROUTINE Care 03/12/18 15:17 Active Cardiac Monitoring [RC] Q8H Care 03/12/18 12:16 Active Notify Provider Consults [RC] ASDIRECTED Care 03/12/18 15:57 Active Oxygen Therapy [RC] PRN Care 03/12/18 15:15 Active Pulse Oximetry [RC] ASDIRECTED Care 03/12/18 12:16 Active Up ad Nazanin [RC] ASDIRECTED Care 03/12/18 15:15 Active VTE/DVT Education [RC] PER UNIT ROUTINE Care 03/12/18 15:15 Active Vital Signs [RC] Q1H Care 03/12/18 15:15 Active Consult to Diabetic Nurse Specialist [CONS] Routine Cons 03/13/18 12:00 Active Consult to Physician [CONS] Routine Cons 03/12/18 15:57 Active Heart Healthy Diet [DIET] Diet 03/12/18 Dinner Active Echo Comp wo Cont [US] Routine Exams 03/13/18 08:00 Taken Acetaminophen [Tylenol] Med 03/12/18 15:15 Active 650 mg PO Q4H PRN Apixaban [Eliquis] Med 03/13/18 09:00 Active 5 mg PO BID Aspirin Med 03/13/18 09:00 Active 81 mg PO DAILY Diltiazem [Cardizem CD] Med 03/13/18 21:00 Active 240 mg PO BEDTIME Diltiazem [Cardizem] 100 mg Med 03/12/18 13:31 Active Sodium Chloride 0.9% [Normal Saline] 100 ml IV NOW Enoxaparin [Lovenox] Med 03/13/18 15:15 Active 40 mg SUBCUT Q24H Ondansetron [Zofran] Med 03/12/18 15:15 Active 4 mg IVPUSH Q4H PRN Sodium Chloride 0.9% [Saline Flush] Med 03/12/18 12:16 Active 10 ml FLUSH ASDIRECTED PRN Sodium Chloride 0.9% [Saline Flush] Med 03/12/18 19:35 Active 10 ml FLUSH ASDIRECTED PRN Sodium Chloride 0.9% [Saline Flush] Med 03/12/18 12:16 Active 2.5 ml FLUSH ASDIRECTED PRN Sodium Chloride 0.9% [Saline Flush] Med 03/12/18 19:35 Active 2.5 ml FLUSH ASDIRECTED PRN Convert IV to Saline Lock [OM.PC] Routine Oth 03/12/18 19:35 Ordered Saline Lock Insert [OM.PC] Stat Oth 03/12/18 12:15 Ordered Sequential Compression Device [OM.PC] Per Unit Routine Oth 03/12/18 15:16 Ordered Resuscitation Status Routine Resus Stat 03/12/18 15:15 Ordered Medication Orders Acetaminophen (Tylenol) 650 mg PO Q4H PRN PRN Reason: Pain (Mild 1-3)/fever Apixaban (Eliquis) 5 mg PO BID [facility] Last Admin: 03/13/18 09:05 Dose: 5 mg Aspirin (Aspirin) 81 mg PO DAILY [facility] Last Admin: 03/13/18 09:05 Dose: 81 mg Diltiazem HCl (Cardizem Cd) 240 mg PO BEDTIME DESMOND Enoxaparin Sodium (Lovenox) 40 mg SUBCUT Q24H DESMOND Diltiazem HCl 100 mg/ Sodium (Chloride) 100 mls @ 10 mls/hr IV NOW DESMOND; Protocol Last Titration: 03/13/18 06:53 Dose: 0 mg/hr, 0 mls/hr Titration: 03/12/18 21:57 Dose: 5 mg/hr, 5 mls/hr Titration: 03/12/18 16:51 Dose: 2.5 mg/hr, 2.5 mls/hr Titration: 03/12/18 15:35 Dose: 5 mg/hr, 5 mls/hr Admin: 03/12/18 13:40 Dose: 10 mg/hr, 10 mls/hr Ondansetron HCl (Zofran) 4 mg IVPUSH Q4H PRN PRN Reason: Nausea Sodium Chloride (Saline Flush) 10 ml FLUSH ASDIRECTED PRN PRN Reason: Keep Vein Open Sodium Chloride (Saline Flush) 2.5 ml FLUSH ASDIRECTED PRN PRN Reason: Keep Vein Open Sodium Chloride (Saline Flush) 10 ml FLUSH ASDIRECTED PRN PRN Reason: Keep Vein Open Sodium Chloride (Saline Flush) 2.5 ml FLUSH ASDIRECTED PRN PRN Reason: Keep Vein Open
[2018-03-12] MEDS ORDERED: Diltiazem 120 MG Cap.CD PO ONE (17:51)
--- NOTE | 2018-03-12 22:38 | CONS ---
DATE OF CONSULTATION: DATE OF : 1970 PRIMARY CARE PHYSICIAN: Unknown PCP HISTORY OF PRESENT ILLNESS: This is a 48-year-old male who came into the hospital due to the palpitation and questioning syncope. Two days prior to the hospitalization, he said that he did not feel quite well. He felt like fatigue and weak but did not have any chest pain, palpitation, and dizziness. His Kiny[place] is his second language and there was slight and language barrier during the conversation. 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 He stated that it is not a pressure, pain, or heaviness, and then all of a sudden, he passed out. It was unclear that he already lost consciousness or he was just feeling dizzy and he fell down, but apparently, he was brought to the emergency room, found to have an atrial fibrillation, and then he was admitted to the hospital. He was given the Lovenox 80 mg subcutaneous, and diltiazem was started. He does not have prior cardiac history. Denies history of hypertension, diabetes, heart failure, history of a stroke. He drinks alcohol from time to time on the weekend, but he does not smoke or do drugs. Currently, he is on diltiazem at 2.5 mg/hour. PAST MEDICAL HISTORY: Denies history of hypertension, heart failure, stroke, history of DC and CAD. SOCIAL HISTORY: He does not smoke. Does not do drugs. He drinks at weekends. FAMILY HISTORY: No family history of CAD or arrhythmia in his father and mother. ALLERGIES: He has no known drug allergies. MEDICATIONS: None. REVIEW OF SYSTEMS: Negative except indicated in HPI. PHYSICAL EXAMINATION: VITAL SIGNS: Initial blood pressure is 132/101. The current blood pressure is 114/69. Heart rate initially 150, currently is between 80 to 100. O2 saturation is 99% on room air. Temperature 36.6. HEENT: Not pale. No jaundice. No JVD. HEART: Normal S1, S2. No murmur. Totally irregular. LUNGS: Clear bilaterally. No wheezing. No crackles. ABDOMEN: Soft, nontender. Bowel sounds are present. No hepatosplenomegaly. No rebound tenderness. No guarding. EXTREMITIES: Legs, no edema. No tenderness. LABORATORY INVESTIGATIONS: CBC shows WBC 4, hematocrit of 46, hemoglobin of 15, platelet 182. INR 1.01. Sodium 139, potassium 3.1, chloride 101, bicarb 28, BUN 15, creatinine 1.5. Liver function is negative. Troponin was negative x1. TSH is normal 1.18. Urinalysis is positive for opioid. EKG shows atrial fibrillation, heart rate of 160, QRS duration of 86, possibly LVH by voltage criteria. ASSESSMENT AND PLAN: This is a 48-year-old male without prior cardiac history, presented to the hospital with new onset of atrial fibrillation, unknown duration, currently had been rate controlled by the diltiazem IV drip. He would need an echo to be done, and there was evidence of LVH on the EKG by voltage EKG. We need to do an echo to rule out a structural heart disease as well as the valvular heart disease as well. The troponin had to be cycled for ACS rule out, and the thyroid function test screening is negative. TSH is normal. I would recommend to do D-dimer. If his D-dimer is positive, he probably needs to get a CT angiogram of the chest to rule out PE. I will recommend to start on Eliquis 5 mg twice a day while he is in atrial fibrillation. We can transition the Cardizem IV drip to Cardizem 240 p.o. once a day. HERBERT JON /[id number]
[2018-03-13 05:38] LABS: HEMOGLOBIN A1C 6.3 % (4.5-6.2)
[2018-03-13 05:47] LABS: CHLORIDE,CL 107 mmol/L (98-107); SODIUM,NA 141 mmol/L (136-148)
[2018-03-13] MEDS ORDERED: Aspirin 81 MG Tab.Chew PO ONE (08:04)
[2018-03-13] MEDS: Apixaban 5 MG Tab PO SCH ×2 (09:05→21:58)
[2018-03-13] MEDS: Aspirin 81 MG Tab.Chew PO SCH (09:05)
[2018-03-13] MEDS ORDERED: Diltiazem IR 60 MG Tab PO ONE (09:06)
--- NOTE | 2018-03-13 09:41 | PCM.PN ---
<Moises Magallanes - Last Filed: 03/13/18 09:34> - General Info Date of Service: 03/13/18 Subjective Update: 48M admitted for A. Fib w/ RVR. Diltiazem drip was stopped today at 5am. Patient says that the discomfort has resolved. His heart rate has been fluctuating in the 80s-140s. His heart rate went up as per nursing when he went to the bathroom to 140s. Troponin negative x3. D-dimer negative. - Patient Data Vitals - Most Recent: Last Vital Signs Temp 36.9 C 03/13/18 08:00 Pulse 104 H 03/13/18 09:00 Resp 16 03/13/18 09:00 BP 127/70 03/13/18 09:00 Pulse Ox 99 03/13/18 09:00 Weight - Most Recent: 81.012 kg I&O - Last 24 Hours: Intake & Output 03/12/18 03/13/18 03/13/18 22:59 06:59 14:59 Intake Total 1675 707 Output Total 200 400 Balance 1475 707 -400 Lab Results Last 24 Hours: Laboratory Results - last 24 hr 03/12/18 03/12/18 03/12/18 Range/Units 12:20 12:20 12:20 WBC 4.95 (4.0-11.0) K/uL RBC 5.56 (4.50-5.90) M/uL Hgb 15.9 (13.0-17.0) g/dL Hct 46.6 (38.0-50.0) % MCV 83.8 (80.0-98.0) fL MCH 28.6 (27.0-32.0) pg MCHC 34.1 (31.0-37.0) g/dL RDW Std Deviation 46.7 (28.0-62.0) fl RDW Coeff of April 15 (11.0-15.0) % Plt Count 182 (150-400) K/uL MPV 10.30 (7.40-12.00) fL Neut % (Auto) 34.8 L (48.0-80.0) % Lymph % (Auto) 49.5 H (16.0-40.0) % [place] % (Auto) 13.9 (0.0-15.0) % Eos % (Auto) 1.2 (0.0-7.0) % Baso % (Auto) 0.6 (0.0-1.5) % Neut # (Auto) 1.7 (1.4-5.7) K/uL Lymph # (Auto) 2.5 H (0.6-2.4) K/uL [place] # (Auto) 0.7 (0.0-0.8) K/uL Eos # (Auto) 0.1 (0.0-0.7) K/uL Baso # (Auto) 0.0 (0.0-0.1) K/uL Nucleated RBC % 0.0 /100WBC Nucleated RBCs # 0 K/uL INR 1.01 D-Dimer, Quantitative (0.0-0.50) mg/L FEU Sodium 139 (136-148) mmol/L Potassium 3.1 L (3.5-5.1) mmol/L Chloride 101 (98-107) mmol/L Carbon Dioxide 28.9 (21.0-32.0) mmol/L BUN 15 (7.0-18.0) mg/dL Creatinine 1.5 H (0.8-1.3) mg/dL Est Cr Clr Drug Dosing 69.54 mL/min Estimated GFR (MDRD) > 60.0 ml/min Glucose 125 H (74-106) mg/dL Hemoglobin A1c (4.5-6.2) % Calcium 9.5 (8.5-10.1) mg/dL Magnesium 2.2 (1.8-2.4) mg/dL Total Bilirubin 1.9 H (0.2-1.0) mg/dL AST 30 (15-37) IU/L ALT 37 (14-63) IU/L Alkaline Phosphatase 65 (46-116) U/L Troponin I < 0.050 (0.000-0.056) ng/mL Total Protein 8.6 H (6.4-8.2) g/dL Albumin 4.2 (3.4-5.0) g/dL Globulin 4.4 H (2.6-4.0) g/dL Albumin/Globulin Ratio 1.0 (0.9-1.6) Triglycerides (0-200) mg/dL Cholesterol (50-200) mg/dL LDL Cholesterol, Calc (60-180) mg/dL VLDL Cholesterol (5-55) mg/dL HDL Cholesterol (40-60) mg/dL Cholesterol/HDL Ratio (3.3-6.0) TSH 3rd Generation 1.18 (0.36-3.74) uIU/mL Urine Opiates Screen (NEGATIVE) Ur Oxycodone Screen (NEGATIVE) Urine Methadone Screen (NEGATIVE) Ur Barbiturates Screen (NEGATIVE) Ur Phencyclidine Scrn (NEGATIVE) Ur Amphetamine Screen (NEGATIVE) U Methamphetamines Scrn (NEGATIVE) U Benzodiazepines Scrn (NEGATIVE) U Cocaine Metab Screen (NEGATIVE) U Marijuana (THC) Screen (NEGATIVE) 03/12/18 03/12/18 03/12/18 Range/Units 18:43 19:15 19:24 WBC (4.0-11.0) K/uL RBC (4.50-5.90) M/uL Hgb (13.0-17.0) g/dL Hct (38.0-50.0) % MCV (80.0-98.0) fL MCH (27.0-32.0) pg MCHC (31.0-37.0) g/dL RDW Std Deviation (28.0-62.0) fl RDW Coeff of April (11.0-15.0) % Plt Count (150-400) K/uL MPV (7.40-12.00) fL Neut % (Auto) (48.0-80.0) % Lymph % (Auto) (16.0-40.0) % [place] % (Auto) (0.0-15.0) % Eos % (Auto) (0.0-7.0) % Baso % (Auto) (0.0-1.5) % Neut # (Auto) (1.4-5.7) K/uL Lymph # (Auto) (0.6-2.4) K/uL [place] # (Auto) (0.0-0.8) K/uL Eos # (Auto) (0.0-0.7) K/uL Baso # (Auto) (0.0-0.1) K/uL Nucleated RBC % /100WBC Nucleated RBCs # K/uL INR D-Dimer, Quantitative < 0.19 (0.0-0.50) mg/L FEU Sodium (136-148) mmol/L Potassium (3.5-5.1) mmol/L Chloride (98-107) mmol/L Carbon Dioxide (21.0-32.0) mmol/L BUN (7.0-18.0) mg/dL Creatinine (0.8-1.3) mg/dL Est Cr Clr Drug Dosing mL/min Estimated GFR (MDRD) ml/min Glucose (74-106) mg/dL Hemoglobin A1c (4.5-6.2) % Calcium (8.5-10.1) mg/dL Magnesium (1.8-2.4) mg/dL Total Bilirubin (0.2-1.0) mg/dL AST (15-37) IU/L ALT (14-63) IU/L Alkaline Phosphatase (46-116) U/L Troponin I < 0.050 (0.000-0.056) ng/mL Total Protein (6.4-8.2) g/dL Albumin (3.4-5.0) g/dL Globulin (2.6-4.0) g/dL Albumin/Globulin Ratio (0.9-1.6) Triglycerides (0-200) mg/dL Cholesterol (50-200) mg/dL LDL Cholesterol, Calc (60-180) mg/dL VLDL Cholesterol (5-55) mg/dL HDL Cholesterol (40-60) mg/dL Cholesterol/HDL Ratio (3.3-6.0) TSH 3rd Generation (0.36-3.74) uIU/mL Urine Opiates Screen POSITIVE (NEGATIVE) Ur Oxycodone Screen NEGATIVE (NEGATIVE) Urine Methadone Screen NEGATIVE (NEGATIVE) Ur Barbiturates Screen NEGATIVE (NEGATIVE) Ur Phencyclidine Scrn NEGATIVE (NEGATIVE) Ur Amphetamine Screen NEGATIVE (NEGATIVE) U Methamphetamines Scrn NEGATIVE (NEGATIVE) U Benzodiazepines Scrn NEGATIVE (NEGATIVE) U Cocaine Metab Screen NEGATIVE (NEGATIVE) U Marijuana (THC) Screen NEGATIVE (NEGATIVE) 03/13/18 03/13/18 03/13/18 Range/Units 00:23 05:23 05:23 WBC 3.17 L (4.0-11.0) K/uL RBC 5.10 (4.50-5.90) M/uL Hgb 14.3 (13.0-17.0) g/dL Hct 42.7 (38.0-50.0) % MCV 83.7 (80.0-98.0) fL MCH 28.0 (27.0-32.0) pg MCHC 33.5 (31.0-37.0) g/dL RDW Std Deviation 46.1 (28.0-62.0) fl RDW Coeff of April 15 (11.0-15.0) % Plt Count 161 (150-400) K/uL MPV 9.70 (7.40-12.00) fL Neut % (Auto) (48.0-80.0) % Lymph % (Auto) (16.0-40.0) % [place] % (Auto) (0.0-15.0) % Eos % (Auto) (0.0-7.0) % Baso % (Auto) (0.0-1.5) % Neut # (Auto) (1.4-5.7) K/uL Lymph # (Auto) (0.6-2.4) K/uL [place] # (Auto) (0.0-0.8) K/uL Eos # (Auto) (0.0-0.7) K/uL Baso # (Auto) (0.0-0.1) K/uL Nucleated RBC % 0.0 /100WBC Nucleated RBCs # 0 K/uL INR D-Dimer, Quantitative (0.0-0.50) mg/L FEU Sodium 141 (136-148) mmol/L Potassium 3.6 (3.5-5.1) mmol/L Chloride 107 (98-107) mmol/L Carbon Dioxide 24.4 (21.0-32.0) mmol/L BUN 15 (7.0-18.0) mg/dL Creatinine 1.2 (0.8-1.3) mg/dL Est Cr Clr Drug Dosing 86.51 mL/min Estimated GFR (MDRD) > 60.0 ml/min Glucose 114 H (74-106) mg/dL Hemoglobin A1c (4.5-6.2) % Calcium 8.8 (8.5-10.1) mg/dL Magnesium 2.0 (1.8-2.4) mg/dL Total Bilirubin 0.6 (0.2-1.0) mg/dL AST 20 (15-37) IU/L ALT 26 (14-63) IU/L Alkaline Phosphatase 53 (46-116) U/L Troponin I < 0.050 (0.000-0.056) ng/mL Total Protein 6.7 (6.4-8.2) g/dL Albumin 3.1 L (3.4-5.0) g/dL Globulin 3.6 (2.6-4.0) g/dL Albumin/Globulin Ratio 0.9 (0.9-1.6) Triglycerides (0-200) mg/dL Cholesterol (50-200) mg/dL LDL Cholesterol, Calc (60-180) mg/dL VLDL Cholesterol (5-55) mg/dL HDL Cholesterol (40-60) mg/dL Cholesterol/HDL Ratio (3.3-6.0) TSH 3rd Generation (0.36-3.74) uIU/mL Urine Opiates Screen (NEGATIVE) Ur Oxycodone Screen (NEGATIVE) Urine Methadone Screen (NEGATIVE) Ur Barbiturates Screen (NEGATIVE) Ur Phencyclidine Scrn (NEGATIVE) Ur Amphetamine Screen (NEGATIVE) U Methamphetamines Scrn (NEGATIVE) U Benzodiazepines Scrn (NEGATIVE) U Cocaine Metab Screen (NEGATIVE) U Marijuana (THC) Screen (NEGATIVE) 03/13/18 03/13/18 Range/Units 05:23 05:23 WBC (4.0-11.0) K/uL RBC (4.50-5.90) M/uL Hgb (13.0-17.0) g/dL Hct (38.0-50.0) % MCV (80.0-98.0) fL MCH (27.0-32.0) pg MCHC (31.0-37.0) g/dL RDW Std Deviation (28.0-62.0) fl RDW Coeff of April (11.0-15.0) % Plt Count (150-400) K/uL MPV (7.40-12.00) fL Neut % (Auto) (48.0-80.0) % Lymph % (Auto) (16.0-40.0) % [place] % (Auto) (0.0-15.0) % Eos % (Auto) (0.0-7.0) % Baso % (Auto) (0.0-1.5) % Neut # (Auto) (1.4-5.7) K/uL Lymph # (Auto) (0.6-2.4) K/uL [place] # (Auto) (0.0-0.8) K/uL Eos # (Auto) (0.0-0.7) K/uL Baso # (Auto) (0.0-0.1) K/uL Nucleated RBC % /100WBC Nucleated RBCs # K/uL INR D-Dimer, Quantitative (0.0-0.50) mg/L FEU Sodium (136-148) mmol/L Potassium (3.5-5.1) mmol/L Chloride (98-107) mmol/L Carbon Dioxide (21.0-32.0) mmol/L BUN (7.0-18.0) mg/dL Creatinine (0.8-1.3) mg/dL Est Cr Clr Drug Dosing mL/min Estimated GFR (MDRD) ml/min Glucose (74-106) mg/dL Hemoglobin A1c 6.3 H (4.5-6.2) % Calcium (8.5-10.1) mg/dL Magnesium (1.8-2.4) mg/dL Total Bilirubin (0.2-1.0) mg/dL AST (15-37) IU/L ALT (14-63) IU/L Alkaline Phosphatase (46-116) U/L Troponin I (0.000-0.056) ng/mL Total Protein (6.4-8.2) g/dL Albumin (3.4-5.0) g/dL Globulin (2.6-4.0) g/dL Albumin/Globulin Ratio (0.9-1.6) Triglycerides 121 (0-200) mg/dL Cholesterol 242 H (50-200) mg/dL LDL Cholesterol, Calc 158 (60-180) mg/dL VLDL Cholesterol 24 (5-55) mg/dL HDL Cholesterol 60 (40-60) mg/dL Cholesterol/HDL Ratio 4.0 (3.3-6.0) TSH 3rd Generation (0.36-3.74) uIU/mL Urine Opiates Screen (NEGATIVE) Ur Oxycodone Screen (NEGATIVE) Urine Methadone Screen (NEGATIVE) Ur Barbiturates Screen (NEGATIVE) Ur Phencyclidine Scrn (NEGATIVE) Ur Amphetamine Screen (NEGATIVE) U Methamphetamines Scrn (NEGATIVE) U Benzodiazepines Scrn (NEGATIVE) U Cocaine Metab Screen (NEGATIVE) U Marijuana (THC) Screen (NEGATIVE) Med Orders - Current: Current Medications Acetaminophen (Tylenol) 650 mg PO Q4H PRN PRN Reason: Pain (Mild 1-3)/fever Apixaban (Eliquis) 5 mg PO BID [facility] Last Admin: 03/13/18 09:05 Dose: 5 mg Aspirin (Aspirin) 81 mg PO DAILY [facility] Last Admin: 03/13/18 09:05 Dose: 81 mg Diltiazem HCl (Cardizem Cd) 240 mg PO BEDTIME [facility] Enoxaparin Sodium (Lovenox) 40 mg SUBCUT Q24H [facility] Diltiazem HCl 100 mg/ Sodium (Chloride) 100 mls @ 10 mls/hr IV NOW [facility]; Protocol Last Titration: 03/13/18 06:53 Dose: 0 mg/hr, 0 mls/hr Ondansetron HCl (Zofran) 4 mg IVPUSH Q4H PRN PRN Reason: Nausea Sodium Chloride (Saline Flush) 10 ml FLUSH ASDIRECTED PRN PRN Reason: Keep Vein Open Sodium Chloride (Saline Flush) 2.5 ml FLUSH ASDIRECTED PRN PRN Reason: Keep Vein Open Sodium Chloride (Saline Flush) 10 ml FLUSH ASDIRECTED PRN PRN Reason: Keep Vein Open Sodium Chloride (Saline Flush) 2.5 ml FLUSH ASDIRECTED PRN PRN Reason: Keep Vein Open Discontinued Medications Aspirin (Aspirin) 324 mg PO ONETIME ONE Stop: 03/12/18 12:17 Last Admin: 03/12/18 12:26 Dose: 324 mg Diltiazem HCl (Diltiazem) 10 mg IVPUSH ONETIME ONE Stop: 03/12/18 12:17 Last Admin: 03/12/18 12:29 Dose: 10 mg Diltiazem HCl (Diltiazem) 10 mg IVPUSH ONETIME ONE Stop: 03/12/18 12:53 Last Admin: 03/12/18 13:01 Dose: 10 mg Diltiazem HCl (Cardizem Cd) 240 mg PO ONETIME ONE Stop: 03/12/18 17:52 Last Admin: 03/12/18 18:13 Dose: 240 mg Diltiazem HCl (Cardizem Cd) 240 mg PO DAILY [facility] Diltiazem HCl (Cardizem) 240 mg PO ONETIME ONE Stop: 03/13/18 09:07 Last Admin: 03/13/18 09:18 Dose: 240 mg Enoxaparin Sodium (Lovenox) 80 mg SUBCUT ONETIME ONE Stop: 03/12/18 12:54 Last Admin: 03/12/18 13:03 Dose: 80 mg Sodium Chloride (Normal Saline) 1,000 mls @ 999 mls/hr IV STAT ONE Stop: 03/12/18 13:16 Last Admin: 03/12/18 12:27 Dose: 999 mls/hr Diltiazem HCl 125 mg/ Sodium (Chloride) 125 mls @ 10 mls/hr IV NOW [facility]; Protocol Sodium Chloride (Normal Saline) 1,000 mls @ 125 mls/hr IV .Bolus ONE Stop: 03/12/18 21:36 Last Admin: 03/12/18 13:39 Dose: 125 mls/hr Potassium Chloride (Potassium Chloride) 40 meq PO ONETIME ONE Stop: 03/12/18 15:24 Last Admin: 03/12/18 15:46 Dose: 40 meq - Exam General: Alert, Oriented HEENT: Pupils Equal, Pupils Reactive, EOMI, Mucous Membr. Moist/[place] Neck: Supple Lungs: Clear to Auscultation, Normal Respiratory Effort Cardiovascular: Irregular Rhythm, Tachycardia GI/Abdominal Exam: Normal Bowel Sounds, Soft, Non-Tender, No Organomegaly, No Distention, No Abnormal Bruit, No Mass, Pelvis Stable Back Exam: Normal Inspection, Full Range of Motion Extremities: Normal Inspection, Normal Range of Motion, Non-Tender, No Pedal Edema, Normal Capillary Refill. No: Leg Pain Peripheral Pulses: 2+: Dorsalis Pedis (L), Dorsalis Pedis (R) Psy/Mental Status: Alert, Normal Affect, Normal Mood - Problem List Review Problem List Initiated/Reviewed/Updated: Yes - My Orders Last 24 Hours: My Active Orders 03/12/18 15:15 Oxygen Therapy [RC] PRN Up ad Nazanin [RC] ASDIRECTED VTE/DVT Education [RC] PER UNIT ROUTINE Vital Signs [RC] Q1H Acetaminophen [Tylenol] 650 mg PO Q4H PRN Ondansetron [Zofran] 4 mg IVPUSH Q4H PRN Resuscitation Status Routine 03/12/18 15:16 Sequential Compression Device [OM.PC] Per Unit Routine 03/12/18 15:17 Antiembolic Devices [RC] PER UNIT ROUTINE 03/12/18 15:57 Notify Provider Consults [RC] ASDIRECTED Consult to Physician [CONS] Routine 03/12/18 Dinner Heart Healthy Diet [DIET] 03/13/18 08:00 Echo Comp wo Cont [US] Routine 03/13/18 09:00 Aspirin 81 mg PO DAILY 03/13/18 15:15 Enoxaparin [Lovenox] 40 mg SUBCUT Q24H - Plan Plan:: Assessment: #1. New onset Atrial fibrillation w/ RVR #2. Prediabetes #3. HLD Plan: #1. Diltiazem 240mg PO x1 now #2. F/u on echo #3. a1c is 6.3% - will need a recheck in 3 months #4. Total cholesterol is 242. His ASCVD risk factor is low not indicating statin therapy right now. #5. Continue eliquis as per cardiology recommendations. #6. F/u on cardiology recommendations #7. Aspirin 81mg PO daily. Current CHADS score is 1 which I would give the point to diabetes given a1c is 6.3%. <Chad Reyes - Last Filed: 03/13/18 12:04> - General Info Admission Dx/Problem (Free Text): I have seen and examined the patient independently of Moises Magallanes MD,medical lead. I have discussed the case with him. I agree with the assessment and plan of care outlined by medical lead. Please see orders. - Patient Data Vitals - Most Recent: Last Vital Signs Temp 36.9 C 03/13/18 08:00 Pulse 96 03/13/18 11:00 Resp 17 03/13/18 11:00 BP 103/74 03/13/18 11:00 Pulse Ox 100 03/13/18 11:00 I&O - Last 24 Hours: Intake & Output 03/12/18 03/13/18 03/13/18 22:59 06:59 14:59 Intake Total 1675 707 Output Total 200 400 Balance 1475 707 -400 Lab Results Last 24 Hours: Laboratory Results - last 24 hr 02/05/19 02/05/19 02/05/19 Range/Units 12:20 12:20 12:20 WBC 4.95 (4.0-11.0) K/uL RBC 5.56 (4.50-5.90) M/uL Hgb 15.9 (13.0-17.0) g/dL Hct 46.6 (38.0-50.0) % MCV 83.8 (80.0-98.0) fL MCH 28.6 (27.0-32.0) pg MCHC 34.1 (31.0-37.0) g/dL RDW Std Deviation 46.7 (28.0-62.0) fl RDW Coeff of April 15 (11.0-15.0) % Plt Count 182 (150-400) K/uL MPV 10.30 (7.40-12.00) fL Neut % (Auto) 34.8 L (48.0-80.0) % Lymph % (Auto) 49.5 H (16.0-40.0) % [place] % (Auto) 13.9 (0.0-15.0) % Eos % (Auto) 1.2 (0.0-7.0) % Baso % (Auto) 0.6 (0.0-1.5) % Neut # (Auto) 1.7 (1.4-5.7) K/uL Lymph # (Auto) 2.5 H (0.6-2.4) K/uL [place] # (Auto) 0.7 (0.0-0.8) K/uL Eos # (Auto) 0.1 (0.0-0.7) K/uL Baso # (Auto) 0.0 (0.0-0.1) K/uL Nucleated RBC % 0.0 /100WBC Nucleated RBCs # 0 K/uL INR 1.01 D-Dimer, Quantitative (0.0-0.50) mg/L FEU Sodium 139 (136-148) mmol/L Potassium 3.1 L (3.5-5.1) mmol/L Chloride 101 (98-107) mmol/L Carbon Dioxide 28.9 (21.0-32.0) mmol/L BUN 15 (7.0-18.0) mg/dL Creatinine 1.5 H (0.8-1.3) mg/dL Est Cr Clr Drug Dosing 69.54 mL/min Estimated GFR (MDRD) > 60.0 ml/min Glucose 125 H (74-106) mg/dL Hemoglobin A1c (4.5-6.2) % Calcium 9.5 (8.5-10.1) mg/dL Magnesium 2.2 (1.8-2.4) mg/dL Total Bilirubin 1.9 H (0.2-1.0) mg/dL AST 30 (15-37) IU/L ALT 37 (14-63) IU/L Alkaline Phosphatase 65 (46-116) U/L Troponin I < 0.050 (0.000-0.056) ng/mL Total Protein 8.6 H (6.4-8.2) g/dL Albumin 4.2 (3.4-5.0) g/dL Globulin 4.4 H (2.6-4.0) g/dL Albumin/Globulin Ratio 1.0 (0.9-1.6) Triglycerides (0-200) mg/dL Cholesterol (50-200) mg/dL LDL Cholesterol, Calc (60-180) mg/dL VLDL Cholesterol (5-55) mg/dL HDL Cholesterol (40-60) mg/dL Cholesterol/HDL Ratio (3.3-6.0) TSH 3rd Generation 1.18 (0.36-3.74) uIU/mL Urine Opiates Screen (NEGATIVE) Ur Oxycodone Screen (NEGATIVE) Urine Methadone Screen (NEGATIVE) Ur Barbiturates Screen (NEGATIVE) Ur Phencyclidine Scrn (NEGATIVE) Ur Amphetamine Screen (NEGATIVE) U Methamphetamines Scrn (NEGATIVE) U Benzodiazepines Scrn (NEGATIVE) U Cocaine Metab Screen (NEGATIVE) U Marijuana (THC) Screen (NEGATIVE) 03/12/18 03/12/18 03/12/18 Range/Units 18:43 19:15 19:24 WBC (4.0-11.0) K/uL RBC (4.50-5.90) M/uL Hgb (13.0-17.0) g/dL Hct (38.0-50.0) % MCV (80.0-98.0) fL MCH (27.0-32.0) pg MCHC (31.0-37.0) g/dL RDW Std Deviation (28.0-62.0) fl RDW Coeff of April (11.0-15.0) % Plt Count (150-400) K/uL MPV (7.40-12.00) fL Neut % (Auto) (48.0-80.0) % Lymph % (Auto) (16.0-40.0) % [place] % (Auto) (0.0-15.0) % Eos % (Auto) (0.0-7.0) % Baso % (Auto) (0.0-1.5) % Neut # (Auto) (1.4-5.7) K/uL Lymph # (Auto) (0.6-2.4) K/uL [place] # (Auto) (0.0-0.8) K/uL Eos # (Auto) (0.0-0.7) K/uL Baso # (Auto) (0.0-0.1) K/uL Nucleated RBC % /100WBC Nucleated RBCs # K/uL INR D-Dimer, Quantitative < 0.19 (0.0-0.50) mg/L FEU Sodium (136-148) mmol/L Potassium (3.5-5.1) mmol/L Chloride (98-107) mmol/L Carbon Dioxide (21.0-32.0) mmol/L BUN (7.0-18.0) mg/dL Creatinine (0.8-1.3) mg/dL Est Cr Clr Drug Dosing mL/min Estimated GFR (MDRD) ml/min Glucose (74-106) mg/dL Hemoglobin A1c (4.5-6.2) % Calcium (8.5-10.1) mg/dL Magnesium (1.8-2.4) mg/dL Total Bilirubin (0.2-1.0) mg/dL AST (15-37) IU/L ALT (14-63) IU/L Alkaline Phosphatase (46-116) U/L Troponin I < 0.050 (0.000-0.056) ng/mL Total Protein (6.4-8.2) g/dL Albumin (3.4-5.0) g/dL Globulin (2.6-4.0) g/dL Albumin/Globulin Ratio (0.9-1.6) Triglycerides (0-200) mg/dL Cholesterol (50-200) mg/dL LDL Cholesterol, Calc (60-180) mg/dL VLDL Cholesterol (5-55) mg/dL HDL Cholesterol (40-60) mg/dL Cholesterol/HDL Ratio (3.3-6.0) TSH 3rd Generation (0.36-3.74) uIU/mL Urine Opiates Screen POSITIVE (NEGATIVE) Ur Oxycodone Screen NEGATIVE (NEGATIVE) Urine Methadone Screen NEGATIVE (NEGATIVE) Ur Barbiturates Screen NEGATIVE (NEGATIVE) Ur Phencyclidine Scrn NEGATIVE (NEGATIVE) Ur Amphetamine Screen NEGATIVE (NEGATIVE) U Methamphetamines Scrn NEGATIVE (NEGATIVE) U Benzodiazepines Scrn NEGATIVE (NEGATIVE) U Cocaine Metab Screen NEGATIVE (NEGATIVE) U Marijuana (THC) Screen NEGATIVE (NEGATIVE) 03/13/18 03/13/18 03/13/18 Range/Units 00:23 05:23 05:23 WBC 3.17 L (4.0-11.0) K/uL RBC 5.10 (4.50-5.90) M/uL Hgb 14.3 (13.0-17.0) g/dL Hct 42.7 (38.0-50.0) % MCV 83.7 (80.0-98.0) fL MCH 28.0 (27.0-32.0) pg MCHC 33.5 (31.0-37.0) g/dL RDW Std Deviation 46.1 (28.0-62.0) fl RDW Coeff of April 15 (11.0-15.0) % Plt Count 161 (150-400) K/uL MPV 9.70 (7.40-12.00) fL Neut % (Auto) (48.0-80.0) % Lymph % (Auto) (16.0-40.0) % [place] % (Auto) (0.0-15.0) % Eos % (Auto) (0.0-7.0) % Baso % (Auto) (0.0-1.5) % Neut # (Auto) (1.4-5.7) K/uL Lymph # (Auto) (0.6-2.4) K/uL [place] # (Auto) (0.0-0.8) K/uL Eos # (Auto) (0.0-0.7) K/uL Baso # (Auto) (0.0-0.1) K/uL Nucleated RBC % 0.0 /100WBC Nucleated RBCs # 0 K/uL INR D-Dimer, Quantitative (0.0-0.50) mg/L FEU Sodium 141 (136-148) mmol/L Potassium 3.6 (3.5-5.1) mmol/L Chloride 107 (98-107) mmol/L Carbon Dioxide 24.4 (21.0-32.0) mmol/L BUN 15 (7.0-18.0) mg/dL Creatinine 1.2 (0.8-1.3) mg/dL Est Cr Clr Drug Dosing 86.51 mL/min Estimated GFR (MDRD) > 60.0 ml/min Glucose 114 H (74-106) mg/dL Hemoglobin A1c (4.5-6.2) % Calcium 8.8 (8.5-10.1) mg/dL Magnesium 2.0 (1.8-2.4) mg/dL Total Bilirubin 0.6 (0.2-1.0) mg/dL AST 20 (15-37) IU/L ALT 26 (14-63) IU/L Alkaline Phosphatase 53 (46-116) U/L Troponin I < 0.050 (0.000-0.056) ng/mL Total Protein 6.7 (6.4-8.2) g/dL Albumin 3.1 L (3.4-5.0) g/dL Globulin 3.6 (2.6-4.0) g/dL Albumin/Globulin Ratio 0.9 (0.9-1.6) Triglycerides (0-200) mg/dL Cholesterol (50-200) mg/dL LDL Cholesterol, Calc (60-180) mg/dL VLDL Cholesterol (5-55) mg/dL HDL Cholesterol (40-60) mg/dL Cholesterol/HDL Ratio (3.3-6.0) TSH 3rd Generation (0.36-3.74) uIU/mL Urine Opiates Screen (NEGATIVE) Ur Oxycodone Screen (NEGATIVE) Urine Methadone Screen (NEGATIVE) Ur Barbiturates Screen (NEGATIVE) Ur Phencyclidine Scrn (NEGATIVE) Ur Amphetamine Screen (NEGATIVE) U Methamphetamines Scrn (NEGATIVE) U Benzodiazepines Scrn (NEGATIVE) U Cocaine Metab Screen (NEGATIVE) U Marijuana (THC) Screen (NEGATIVE) 03/13/18 03/13/18 Range/Units 05:23 05:23 WBC (4.0-11.0) K/uL RBC (4.50-5.90) M/uL Hgb (13.0-17.0) g/dL Hct (38.0-50.0) % MCV (80.0-98.0) fL MCH (27.0-32.0) pg MCHC (31.0-37.0) g/dL RDW Std Deviation (28.0-62.0) fl RDW Coeff of April (11.0-15.0) % Plt Count (150-400) K/uL MPV (7.40-12.00) fL Neut % (Auto) (48.0-80.0) % Lymph % (Auto) (16.0-40.0) % [place] % (Auto) (0.0-15.0) % Eos % (Auto) (0.0-7.0) % Baso % (Auto) (0.0-1.5) % Neut # (Auto) (1.4-5.7) K/uL Lymph # (Auto) (0.6-2.4) K/uL [place] # (Auto) (0.0-0.8) K/uL Eos # (Auto) (0.0-0.7) K/uL Baso # (Auto) (0.0-0.1) K/uL Nucleated RBC % /100WBC Nucleated RBCs # K/uL INR D-Dimer, Quantitative (0.0-0.50) mg/L FEU Sodium (136-148) mmol/L Potassium (3.5-5.1) mmol/L Chloride (98-107) mmol/L Carbon Dioxide (21.0-32.0) mmol/L BUN (7.0-18.0) mg/dL Creatinine (0.8-1.3) mg/dL Est Cr Clr Drug Dosing mL/min Estimated GFR (MDRD) ml/min Glucose (74-106) mg/dL Hemoglobin A1c 6.3 H (4.5-6.2) % Calcium (8.5-10.1) mg/dL Magnesium (1.8-2.4) mg/dL Total Bilirubin (0.2-1.0) mg/dL AST (15-37) IU/L ALT (14-63) IU/L Alkaline Phosphatase (46-116) U/L Troponin I (0.000-0.056) ng/mL Total Protein (6.4-8.2) g/dL Albumin (3.4-5.0) g/dL Globulin (2.6-4.0) g/dL Albumin/Globulin Ratio (0.9-1.6) Triglycerides 121 (0-200) mg/dL Cholesterol 242 H (50-200) mg/dL LDL Cholesterol, Calc 158 (60-180) mg/dL VLDL Cholesterol 24 (5-55) mg/dL HDL Cholesterol 60 (40-60) mg/dL Cholesterol/HDL Ratio 4.0 (3.3-6.0) TSH 3rd Generation (0.36-3.74) uIU/mL Urine Opiates Screen (NEGATIVE) Ur Oxycodone Screen (NEGATIVE) Urine Methadone Screen (NEGATIVE) Ur Barbiturates Screen (NEGATIVE) Ur Phencyclidine Scrn (NEGATIVE) Ur Amphetamine Screen (NEGATIVE) U Methamphetamines Scrn (NEGATIVE) U Benzodiazepines Scrn (NEGATIVE) U Cocaine Metab Screen (NEGATIVE) U Marijuana (THC) Screen (NEGATIVE) Med Orders - Current: Current Medications Acetaminophen (Tylenol) 650 mg PO Q4H PRN PRN Reason: Pain (Mild 1-3)/fever Apixaban (Eliquis) 5 mg PO BID [facility] Last Admin: 03/13/18 09:05 Dose: 5 mg Aspirin (Aspirin) 81 mg PO DAILY [facility] Last Admin: 03/13/18 09:05 Dose: 81 mg Diltiazem HCl (Cardizem Cd) 240 mg PO BEDTIME [facility] Enoxaparin Sodium (Lovenox) 40 mg SUBCUT Q24H [facility] Diltiazem HCl 100 mg/ Sodium (Chloride) 100 mls @ 10 mls/hr IV NOW [facility]; Protocol Last Titration: 03/13/18 06:53 Dose: 0 mg/hr, 0 mls/hr Ondansetron HCl (Zofran) 4 mg IVPUSH Q4H PRN PRN Reason: Nausea Sodium Chloride (Saline Flush) 10 ml FLUSH ASDIRECTED PRN PRN Reason: Keep Vein Open Sodium Chloride (Saline Flush) 2.5 ml FLUSH ASDIRECTED PRN PRN Reason: Keep Vein Open Sodium Chloride (Saline Flush) 10 ml FLUSH ASDIRECTED PRN PRN Reason: Keep Vein Open Sodium Chloride (Saline Flush) 2.5 ml FLUSH ASDIRECTED PRN PRN Reason: Keep Vein Open Discontinued Medications Aspirin (Aspirin) 324 mg PO ONETIME ONE Stop: 03/12/18 12:17 Last Admin: 03/12/18 12:26 Dose: 324 mg Diltiazem HCl (Diltiazem) 10 mg IVPUSH ONETIME ONE Stop: 03/12/18 12:17 Last Admin: 03/12/18 12:29 Dose: 10 mg Diltiazem HCl (Diltiazem) 10 mg IVPUSH ONETIME ONE Stop: 03/12/18 12:53 Last Admin: 03/12/18 13:01 Dose: 10 mg Diltiazem HCl (Cardizem Cd) 240 mg PO ONETIME ONE Stop: 03/12/18 17:52 Last Admin: 03/12/18 18:13 Dose: 240 mg Diltiazem HCl (Cardizem Cd) 240 mg PO DAILY [facility] Diltiazem HCl (Cardizem) 240 mg PO ONETIME ONE Stop: 03/13/18 09:07 Last Admin: 03/13/18 09:18 Dose: 240 mg Enoxaparin Sodium (Lovenox) 80 mg SUBCUT ONETIME ONE Stop: 03/12/18 12:54 Last Admin: 03/12/18 13:03 Dose: 80 mg Sodium Chloride (Normal Saline) 1,000 mls @ 999 mls/hr IV STAT ONE Stop: 03/12/18 13:16 Last Admin: 03/12/18 12:27 Dose: 999 mls/hr Diltiazem HCl 125 mg/ Sodium (Chloride) 125 mls @ 10 mls/hr IV NOW [facility]; Protocol Sodium Chloride (Normal Saline) 1,000 mls @ 125 mls/hr IV .Bolus ONE Stop: 03/12/18 21:36 Last Admin: 03/12/18 13:39 Dose: 125 mls/hr Potassium Chloride (Potassium Chloride) 40 meq PO ONETIME ONE Stop: 03/12/18 15:24 Last Admin: 03/12/18 15:46 Dose: 40 meq - My Orders Last 24 Hours: My Active Orders 03/12/18 19:35 Sodium Chloride 0.9% [Saline Flush] 10 ml FLUSH ASDIRECTED PRN Sodium Chloride 0.9% [Saline Flush] 2.5 ml FLUSH ASDIRECTED PRN Convert IV to Saline Lock [OM.PC] Routine 03/13/18 12:00 Consult to Diabetic Nurse Specialist [CONS] Routine
[2018-03-13] MEDS ORDERED: Enoxaparin 40 MG/0.4 ML Syringe SUBCUT SCH (15:15)
[2018-03-13] MEDS ORDERED: Metoprolol Tartrate 50 MG Tab PO SCH (16:00)
[2018-03-13] MEDS ORDERED: Diltiazem 120 MG Cap.CD PO SCH ×2 (21:00)
[2018-03-13] MEDS: Metoprolol Tartrate 50 MG Tab PO SCH (21:58)
[2018-03-14 05:37] LABS: CHLORIDE,CL 106 mmol/L (98-107); SODIUM,NA 140 mmol/L (136-148)
--- NOTE | 2018-03-14 09:00 | PCM.DCSUM1 ---
<Moises Magallanes - Last Filed: 03/14/18 08:55> Discharge Summary - Hospital Course Free Text/Narrative:: Admission date: 03/12/2018 Discharge date: 03/14/2018 Admission diagnosis: #1. Atrial Fibrillation w/ RVR of unknown onset #2. Chest palpitations secondary to #1 Discharge diagnosis: #1. Rate controlled atrial fibrillation, now sinus rhyhtm #2. Chest palpitations resolved #3. HLD #4. Prediabetes Consultations: Dr. Michaud, Cardiology Hospital course: 48M that presented to the ER on 03/12/18 with complaints of chest discomfort/palpitations found to be in A. Fib w/ RVR was admitted for further management. He was placed in our ICU. He was initially placed on a cardizem drip which was titrated off to 240mg PO daily. Heart rate remained tachycardic, so lopressor 50mg PO BID was added. He was on Eliquis while on pAF. Since he converted to sinus rhythm and having a CHADS score of 0, with prediabetes, I discharged him home on aspirin. He is to follow up with caridology and a PCP Discharge medications: #1. Diltiazem 240mg PO qhs #2. Lopressor 50mg PO BID #3. Aspirin 81mg PO daily Follow up: Cardiology, Dr. Michaud. PCP -Dr. Magallanes Recheck hgba1c in 3 months At that time he may need to be placed on metformin and a statin. - Discharge Data Discharge Date: 03/14/18 Discharge Disposition: Home, Self-Care 01 Condition: Stable - Patient Summary/Data Consults: Consultations 03/12/18 15:57 Consult to Physician [CONS] Routine 03/13/18 12:00 Consult to Diabetic Nurse Specialist [CONS] Routine - Patient Instructions Diet: Usual Diet as Tolerated Activity: As Tolerated Driving: May Drive Today Notify Provider of: Fever, Increased Pain, Nausea and/or Vomiting - Discharge Plan Prescriptions/Med Rec: Aspirin [Adult Aspirin] 81 mg PO DAILY 30 Days #30 tablet.dr Vazquez [Cardizem CD] 240 mg PO BEDTIME 30 Days #30 cap.cd Metoprolol Tartrate [Lopressor] 50 mg PO BID 30 Days #60 tablet Home Medications: Home Meds Aspirin [Adult Aspirin] 81 mg PO DAILY 30 Days #30 tablet. 03/14/18 [Rx] Diltiazem [Cardizem CD] 240 mg PO BEDTIME 30 Days #30 cap.cd 03/14/18 [Rx] Metoprolol Tartrate [Lopressor] 50 mg PO BID 30 Days #60 tablet 03/14/18 [Rx] Patient Handouts: Palpitations, [id number], Atrial Fibrillation, [id number] Forms: ED Department Discharge Referrals: Poonam Michaud MD [Physician] - 04/10/18 8:00 am Moises Magallanes MD [Resident] - 03/21/18 3:00 pm - Discharge Summary/Plan Comment DC Time >30 min.: No - Patient Data Vitals - Most Recent: Last Vital Signs Temp 36.8 C 03/14/18 04:00 Pulse 63 03/14/18 07:00 Resp 18 03/14/18 07:00 BP 103/74 03/14/18 07:00 Pulse Ox 100 03/14/18 07:00 Weight - Most Recent: 81.919 kg I&O - Last 24 hours: Intake & Output 03/13/18 03/14/18 03/14/18 22:59 06:59 14:59 Intake Total 120 800 Balance 120 800 Lab Results - Last 24 hrs: Laboratory Results - last 24 hr 03/14/18 Range/Units 05:20 Sodium 140 (136-148) mmol/L Potassium 3.6 (3.5-5.1) mmol/L Chloride 106 (98-107) mmol/L Carbon Dioxide 24.3 (21.0-32.0) mmol/L BUN 16 (7.0-18.0) mg/dL Creatinine 1.3 (0.8-1.3) mg/dL Est Cr Clr Drug Dosing 79.86 mL/min Estimated GFR (MDRD) > 60.0 ml/min Glucose 103 (74-106) mg/dL Calcium 8.6 (8.5-10.1) mg/dL Med Orders - Current: Current Medications Acetaminophen (Tylenol) 650 mg PO Q4H PRN PRN Reason: Pain (Mild 1-3)/fever Apixaban (Eliquis) 5 mg PO BID DESMOND Last Admin: 03/13/18 21:58 Dose: 5 mg Aspirin (Aspirin) 81 mg PO DAILY [facility] Last Admin: 03/13/18 09:05 Dose: 81 mg Diltiazem HCl (Cardizem Cd) 240 mg PO BEDTIME [facility] Last Admin: 03/13/18 21:59 Dose: 240 mg Enoxaparin Sodium (Lovenox) 40 mg SUBCUT Q24H [facility] Last Admin: 03/13/18 16:44 Dose: 40 mg Diltiazem HCl 100 mg/ Sodium (Chloride) 100 mls @ 10 mls/hr IV NOW [facility]; Protocol Last Titration: 03/13/18 06:53 Dose: 0 mg/hr, 0 mls/hr Metoprolol Tartrate (Lopressor) 50 mg PO BID [facility] Last Admin: 03/13/18 21:58 Dose: 50 mg Ondansetron HCl (Zofran) 4 mg IVPUSH Q4H PRN PRN Reason: Nausea Sodium Chloride (Saline Flush) 10 ml FLUSH ASDIRECTED PRN PRN Reason: Keep Vein Open Sodium Chloride (Saline Flush) 2.5 ml FLUSH ASDIRECTED PRN PRN Reason: Keep Vein Open Sodium Chloride (Saline Flush) 10 ml FLUSH ASDIRECTED PRN PRN Reason: Keep Vein Open Sodium Chloride (Saline Flush) 2.5 ml FLUSH ASDIRECTED PRN PRN Reason: Keep Vein Open Discontinued Medications Aspirin (Aspirin) 324 mg PO ONETIME ONE Stop: 03/12/18 12:17 Last Admin: 03/12/18 12:26 Dose: 324 mg Diltiazem HCl (Diltiazem) 10 mg IVPUSH ONETIME ONE Stop: 03/12/18 12:17 Last Admin: 03/12/18 12:29 Dose: 10 mg Diltiazem HCl (Diltiazem) 10 mg IVPUSH ONETIME ONE Stop: 03/12/18 12:53 Last Admin: 03/12/18 13:01 Dose: 10 mg Diltiazem HCl (Cardizem Cd) 240 mg PO ONETIME ONE Stop: 03/12/18 17:52 Last Admin: 03/12/18 18:13 Dose: 240 mg Diltiazem HCl (Cardizem Cd) 240 mg PO DAILY [facility] Diltiazem HCl (Cardizem) 240 mg PO ONETIME ONE Stop: 03/13/18 09:07 Last Admin: 03/13/18 09:18 Dose: 240 mg Enoxaparin Sodium (Lovenox) 80 mg SUBCUT ONETIME ONE Stop: 03/12/18 12:54 Last Admin: 03/12/18 13:03 Dose: 80 mg Sodium Chloride (Normal Saline) 1,000 mls @ 999 mls/hr IV STAT ONE Stop: 03/12/18 13:16 Last Admin: 03/12/18 12:27 Dose: 999 mls/hr Diltiazem HCl 125 mg/ Sodium (Chloride) 125 mls @ 10 mls/hr IV NOW DESMOND; Protocol Sodium Chloride (Normal Saline) 1,000 mls @ 125 mls/hr IV .Bolus ONE Stop: 03/12/18 21:36 Last Admin: 03/12/18 13:39 Dose: 125 mls/hr Metoprolol Tartrate (Lopressor) 50 mg PO Q8H DESMOND Last Admin: 03/13/18 16:44 Dose: 50 mg Potassium Chloride (Potassium Chloride) 40 meq PO ONETIME ONE Stop: 03/12/18 15:24 Last Admin: 03/12/18 15:46 Dose: 40 meq <Chad Reyes - Last Filed: 03/14/18 10:58> Discharge Summary - Hospital Course Free Text/Narrative:: I have seen and examined the patient independently of Moises Magallanes MD,medical center manager. I have discussed the case with him. I agree with the assessment and plan of care outlined by medical center manager. Please see orders. - Patient Summary/Data Consults: Consultations 03/12/18 15:57 Consult to Physician [CONS] Routine 03/13/18 12:00 Consult to Diabetic Nurse Specialist [CONS] Routine - Patient Data Vitals - Most Recent: Last Vital Signs Temp 36.8 C 03/14/18 09:00 Pulse 78 03/14/18 10:00 Resp 18 03/14/18 10:00 BP 117/78 03/14/18 10:00 Pulse Ox 99 03/14/18 10:00 I&O - Last 24 hours: Intake & Output 03/13/18 03/14/18 03/14/18 22:59 06:59 14:59 Intake Total 120 800 Balance 120 800 Lab Results - Last 24 hrs: Laboratory Results - last 24 hr 03/14/18 Range/Units 05:20 Sodium 140 (136-148) mmol/L Potassium 3.6 (3.5-5.1) mmol/L Chloride 106 (98-107) mmol/L Carbon Dioxide 24.3 (21.0-32.0) mmol/L BUN 16 (7.0-18.0) mg/dL Creatinine 1.3 (0.8-1.3) mg/dL Est Cr Clr Drug Dosing 79.86 mL/min Estimated GFR (MDRD) > 60.0 ml/min Glucose 103 (74-106) mg/dL Calcium 8.6 (8.5-10.1) mg/dL Med Orders - Current: Current Medications Discontinued Medications Acetaminophen (Tylenol) 650 mg PO Q4H PRN PRN Reason: Pain (Mild 1-3)/fever Apixaban (Eliquis) 5 mg PO BID [facility] Last Admin: 03/14/18 09:24 Dose: Not Given Aspirin (Aspirin) 324 mg PO ONETIME ONE Stop: 03/12/18 12:17 Last Admin: 03/12/18 12:26 Dose: 324 mg Aspirin (Aspirin) 81 mg PO DAILY [facility] Last Admin: 03/14/18 09:21 Dose: 81 mg Diltiazem HCl (Diltiazem) 10 mg IVPUSH ONETIME ONE Stop: 03/12/18 12:17 Last Admin: 03/12/18 12:29 Dose: 10 mg Diltiazem HCl (Diltiazem) 10 mg IVPUSH ONETIME ONE Stop: 03/12/18 12:53 Last Admin: 03/12/18 13:01 Dose: 10 mg Diltiazem HCl (Cardizem Cd) 240 mg PO ONETIME ONE Stop: 03/12/18 17:52 Last Admin: 03/12/18 18:13 Dose: 240 mg Diltiazem HCl (Cardizem Cd) 240 mg PO DAILY [facility] Diltiazem HCl (Cardizem Cd) 240 mg PO BEDTIME [facility] Last Admin: 03/13/18 21:59 Dose: 240 mg Diltiazem HCl (Cardizem) 240 mg PO ONETIME ONE Stop: 03/13/18 09:07 Last Admin: 03/13/18 09:18 Dose: 240 mg Enoxaparin Sodium (Lovenox) 80 mg SUBCUT ONETIME ONE Stop: 03/12/18 12:54 Last Admin: 03/12/18 13:03 Dose: 80 mg Enoxaparin Sodium (Lovenox) 40 mg SUBCUT Q24H [facility] Last Admin: 03/13/18 16:44 Dose: 40 mg Sodium Chloride (Normal Saline) 1,000 mls @ 999 mls/hr IV STAT ONE Stop: 03/12/18 13:16 Last Admin: 03/12/18 12:27 Dose: 999 mls/hr Diltiazem HCl 125 mg/ Sodium (Chloride) 125 mls @ 10 mls/hr IV NOW DESMOND; Protocol Diltiazem HCl 100 mg/ Sodium (Chloride) 100 mls @ 10 mls/hr IV NOW [facility]; Protocol Last Titration: 03/13/18 06:53 Dose: 0 mg/hr, 0 mls/hr Sodium Chloride (Normal Saline) 1,000 mls @ 125 mls/hr IV .Bolus ONE Stop: 03/12/18 21:36 Last Admin: 03/12/18 13:39 Dose: 125 mls/hr Metoprolol Tartrate (Lopressor) 50 mg PO Q8H [facility] Last Admin: 03/13/18 16:44 Dose: 50 mg Metoprolol Tartrate (Lopressor) 50 mg PO BID DESMOND Last Admin: 03/14/18 09:21 Dose: 50 mg Ondansetron HCl (Zofran) 4 mg IVPUSH Q4H PRN PRN Reason: Nausea Potassium Chloride (Potassium Chloride) 40 meq PO ONETIME ONE Stop: 03/12/18 15:24 Last Admin: 03/12/18 15:46 Dose: 40 meq Sodium Chloride (Saline Flush) 10 ml FLUSH ASDIRECTED PRN PRN Reason: Keep Vein Open Sodium Chloride (Saline Flush) 2.5 ml FLUSH ASDIRECTED PRN PRN Reason: Keep Vein Open Sodium Chloride (Saline Flush) 10 ml FLUSH ASDIRECTED PRN PRN Reason: Keep Vein Open Sodium Chloride (Saline Flush) 2.5 ml FLUSH ASDIRECTED PRN PRN Reason: Keep Vein Open
[2018-03-14] MEDS: Aspirin 81 MG Tab.Chew PO SCH (09:21)
[2018-03-14] MEDS: Metoprolol Tartrate 50 MG Tab PO SCH (09:21)
[2018-03-14] MEDS: Apixaban 5 MG Tab PO SCH (09:24)
[2018-03-14 10:50] VITALS: BP 117/78
--- NOTE | 2018-03-15 19:41 | ECHO ---
The echocardiogram report has been scanned into this patient's EMR (Electronic Medical Record) in the Reports section. The echocardiogram report has also been scanned into PACS and can be seen there as well. PARESH
== END 2018-03-14 10:10 | disposition home or self-care (01) ==
LOC: MW.ED 12:15 → MW.ICU 13:22 → UNDOADMOB 14:08 → MW.ICU 14:08
PROVIDERS: ADMIT Internal Medicine; ATTEND Internal Medicine
DX: I48.91 Unspecified atrial fibrillation (principal); R73.03 Prediabetes; E78.5 Hyperlipidemia, unspecified; I10 Essential (primary) hypertension; E87.6 Hypokalemia; Z79.899 Other long term (current) drug therapy
CPT/HCPCS: 36415; 71045; 80048; 80053; 80061; 80305; 83036; 83735; 84443; 84484; 85025; 85027; 85379; 85610; 93005; 93306; 96361; 96365; 96366; 96372; 96376; 99285; A9270; G0378; J1650; J3490; J7030; J7040; 96374

== ENCOUNTER 2018-12-29 12:33 | Emergency (ER) | payer BC, OTHER ==
--- NOTE | 2018-12-29 12:42 | EDM.PDOC ---
ED HPI GENERAL MEDICAL PROBLEM - General Chief Complaint: ENT Problem Stated Complaint: SORE THOAT Time Seen by Provider: 12/29/18 12:37 - History of Present Illness INITIAL COMMENTS - FREE TEXT/NARRATIVE: HISTORY AND PHYSICAL: History of present illness: Patient's 48-year-old black male who presents with concern of sore throat is been worse over the last several days he denies fever chills nausea vomiting or other complaints Review of systems: As per history of present illness and below otherwise all systems reviewed and negative. Past medical history: As per history of present illness and as reviewed below otherwise noncontributory. Surgical history: As per history of present illness and as reviewed below otherwise noncontributory. Social history: No reported history of drug or alcohol abuse. Family history: As per history of present illness and as reviewed below otherwise noncontributory. Physical exam: HEENT: Atraumatic, normocephalic, pupils reactive, negative for conjunctival pallor or scleral icterus, mucous membranes moist, throat injected with pustular exudates no peritonsillar fullness uvular deviation trismus or hot potato voice, neck supple, nontender, trachea midline. Lungs: Clear to auscultation, breath sounds equal bilaterally, chest nontender. Heart: S1S2, regular, negative for clicks, rubs, or JVD. Abdomen: Soft, nondistended, nontender. Negative for masses or hepatosplenomegaly. Negative for costovertebral tenderness. Pelvis: Stable nontender. Genitourinary: Deferred. Rectal: Deferred. Extremities: Atraumatic, negative for cords or calf pain. Neurovascular unremarkable. Neuro: Awake, alert, oriented. Cranial nerves II through XII unremarkable. Cerebellum unremarkable. Motor and sensory unremarkable throughout. Exam nonfocal. Diagnostics: Deferred Therapeutics: None Impression: Exudative pharyngitis Definitive disposition and diagnosis as appropriate pending reevaluation and review of above. Throat Pain Score (Numeric/FACES): 5 - Related Data Allergies Allergy/AdvReac Type Severity Reaction Status Date / Time No Known Allergies Allergy Verified 03/12/18 12:15 Home Meds: Home Meds Aspirin [Adult Aspirin] 81 mg PO DAILY 30 Days #30 tablet. 03/14/18 [Rx] Diltiazem [Cardizem CD] 240 mg PO BEDTIME 30 Days #30 cap.cd 03/14/18 [Rx] Metoprolol Tartrate [Lopressor] 50 mg PO BID 30 Days #60 tablet 03/14/18 [Rx] Past Medical History - Past Health History Medical/Surgical History: Denies Medical/Surgical History Cardiovascular History: Reports: Hypertension. 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 ED EXAM, GENERAL - Physical Exam Exam: See Below (See dictation) Course - Vital Signs Last Recorded V/S: Last Vital Signs Temp 36.7 C 12/29/18 12:37 Pulse 94 12/29/18 12:37 Resp 18 12/29/18 12:37 BP 139/86 12/29/18 12:37 Pulse Ox 97 12/29/18 12:37 Departure - Departure Time of Disposition: 12:40 Disposition: Home, Self-Care 01 Condition: Good Clinical Impression: Exudative pharyngitis - Discharge Information Additional Instructions: The following information is given to patients seen in the emergency department who are being discharged to home. This information is to outline your options for follow-up care. We provide all patients seen in our emergency department with a follow-up referral. The need for follow-up, as well as the timing and circumstances, are variable depending upon the specifics of your emergency department visit. If you don't have a primary care physician on staff, we will provide you with a referral. We always advise you to contact your personal physician following an emergency department visit to inform them of the circumstance of the visit and for follow-up with them and/or the need for any referrals to a consulting specialist. The emergency department will also refer you to a specialist when appropriate. This referral assures that you have the opportunity for followup care with a specialist. All of these measure are taken in an effort to provide you with optimal care, which includes your followup. Under all circumstances we always encourage you to contact your private physician who remains a resource for coordinating your care. When calling for followup care, please make the office aware that this follow-up is from your recent emergency room visit. If for any reason you are refused follow-up, please contact the [facility] emergency department at and asked to speak to the emergency department charge nurse. Augmentin Tylenol with codeine elixir is prescribed follow-up primary medical doctor return as needed as discussed Tony as directed
[2018-12-29 13:08] VITALS: BP 127/75; PULSE 86
== END 2018-12-29 12:51 | disposition home or self-care (01) ==
LOC: MW.ED 12:33
DX: J02.9 Acute pharyngitis, unspecified (principal); I10 Essential (primary) hypertension; Z79.82 Long term (current) use of aspirin; Z79.899 Other long term (current) drug therapy
CPT/HCPCS: 99282

== ENCOUNTER 2019-03-16 07:36 | Emergency (ER) | payer BC, OTHER ==
--- NOTE | 2019-03-16 07:49 | EDM.PDOC ---
ED HPI GENERAL MEDICAL PROBLEM - General Chief Complaint: Back Pain or Injury Stated Complaint: BACK PAIN Time Seen by Provider: 03/16/19 07:40 Source of Information: Reports: Patient History Limitations: Reports: No Limitations, Intoxication - History of Present Illness INITIAL COMMENTS - FREE TEXT/NARRATIVE: Is a 49-year-old male was complaining of having severe back pain for the last 2 days. This is on the left side and seems to radiate both upper and lower. Estonian is a second language and he seems to be somewhat inebriated and is therefore a poor historian. Patient states he was lifting some furniture approximately 8 days ago and had a little bit of pain in this area at that time but without any provocation this got much worse yesterday. The pain is 10 out of 10 intensity. He denies any nausea or vomiting. He denies any dysuria or hematuria. His pain is worse with movement. He has had similar pain in 2013 for which he was seen in [place] but is uncertain of the etiology of the pain. he has been taking ibuprofen without relief. He denies having any history of kidney infections or kidney stones. He denies any abdominal pain or any change in his pain with eating. He denies any bloody or tarry stools. He has had no fever or shaking chills. 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 [No Known Home Meds] 12/29/18 [History] Past Medical History - Past Health History Medical/Surgical History: Denies Medical/Surgical History HEENT History: Reports: None Cardiovascular History: Reports: Hypertension. 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 Musculoskeletal History: Reports: None Neurological History: Reports: None Psychiatric History: Reports: None Endocrine/Metabolic History: Reports: None Hematologic History: Reports: None Immunologic History: Reports: None Oncologic (Cancer) History: Reports: None Dermatologic History: Reports: None - Infectious Disease History Infectious Disease History: Reports: TB Other Infectious Disease History: latent TB treatment 1 year ago - Past Surgical History Head Surgeries/Procedures: Reports: None Social & Family History - Family History Family Medical History: Noncontributory - Caffeine Use Caffeine Use: Reports: None ED ROS GENERAL - Review of Systems Review Of Systems: Comprehensive ROS is negative, except as noted in HPI. Constitutional: Reports: No Symptoms HEENT: Reports: No Symptoms Respiratory: Reports: No Symptoms Cardiovascular: Reports: No Symptoms GI/Abdominal: Reports: No Symptoms : Reports: No Symptoms. Denies: Dysuria, Frequency, Hematuria Musculoskeletal: Reports: Back Pain Skin: Reports: No Symptoms Neurological: Reports: No Symptoms. Denies: Numbness, Paresthesia Psychiatric: Reports: No Symptoms Hematologic/Lymphatic: Reports: No Symptoms ED EXAM,LOWER BACK PAIN/INJURY - Physical Exam Exam: See Below Text/Narrative:: Exam: See Below. Patient is clearly uncomfortable and has odor not unlike alcohol on his breath. Exam Limited By: No Limitations Head: Atraumatic Neck: Normal Inspection. No: Carotid Bruit, Lymphadenopathy (R) Respiratory/Chest: No Respiratory Distress, Lungs Clear, Normal Breath Sounds, No Accessory Muscle Use. No: Chest Non-Tender Cardiovascular: Normal Peripheral Pulses, Regular Rate, Rhythm, No Edema, No JVD GI/Abdominal: Normal Bowel Sounds, Tender. No: Non-Tender, Splenomegaly Back Exam: Normal Inspection. Positive for left CVA area tenderness which reproduces pain symptoms. Extremities: Normal Inspection. No: No Pedal Edema Neurological: Alert, Oriented, Normal Cognition Psychiatric: Normal Affect, anxious. Skin Exam: Warm Lymphatic: No Adenopathy Course - Vital Signs Text/Narrative:: Patient's urine and lab work is all normal. He is feeling somewhat better and is complaining of pain no longer in the left CVA area seems to be more in the lumbar area. I believe now that his pain is musculoskeletal in nature and will give him on prednisone and give him some Flexeril and Lidoderm. Last Recorded V/S: Last Vital Signs Temp 36.2 C 03/16/19 07:50 Pulse 88 03/16/19 07:50 Resp 17 03/16/19 07:50 BP 155/97 H 03/16/19 07:50 Pulse Ox 99 03/16/19 07:50 - Orders/Labs/Meds Labs: Laboratory Tests 03/16/19 03/16/19 03/16/19 Range/Units 08:00 08:10 09:03 WBC 4.36 (4.0-11.0) K/uL RBC 5.10 (4.50-5.90) M/uL Hgb 15.0 (13.0-17.0) g/dL Hct 45.1 (38.0-50.0) % MCV 88.4 (80.0-98.0) fL MCH 29.4 (27.0-32.0) pg MCHC 33.3 (31.0-37.0) g/dL RDW Std Deviation 55.4 (28.0-62.0) fl RDW Coeff of April 17 H (11.0-15.0) % Plt Count 186 (150-400) K/uL MPV 10.00 (7.40-12.00) fL Neut % (Auto) 38.5 L (48.0-80.0) % Lymph % (Auto) 49.3 H (16.0-40.0) % Winkler % (Auto) 10.8 (0.0-15.0) % Eos % (Auto) 0.9 (0.0-7.0) % Baso % (Auto) 0.5 (0.0-1.5) % Neut # (Auto) 1.7 (1.4-5.7) K/uL Lymph # (Auto) 2.2 (0.6-2.4) K/uL Winkler # (Auto) 0.5 (0.0-0.8) K/uL Eos # (Auto) 0.0 (0.0-0.7) K/uL Baso # (Auto) 0.0 (0.0-0.1) K/uL Nucleated RBC % 0.0 /100WBC Nucleated RBCs # 0 K/uL Sodium 142 (136-148) mmol/L Potassium 4.0 (3.5-5.1) mmol/L Chloride 109 H (98-107) mmol/L Carbon Dioxide 23.6 (21.0-32.0) mmol/L BUN 14 (7.0-18.0) mg/dL Creatinine 1.1 (0.8-1.3) mg/dL Est Cr Clr Drug Dosing 74.92 mL/min Estimated GFR (MDRD) > 60.0 ml/min Glucose 105 (74-106) mg/dL Calcium 7.9 L (8.5-10.1) mg/dL Total Bilirubin 0.2 (0.2-1.0) mg/dL AST 17 (15-37) IU/L ALT 34 (14-63) IU/L Alkaline Phosphatase 49 (46-116) U/L Total Protein 6.9 (6.4-8.2) g/dL Albumin 3.3 L (3.4-5.0) g/dL Globulin 3.6 (2.6-4.0) g/dL Albumin/Globulin Ratio 0.9 (0.9-1.6) Urine Color YELLOW Urine Appearance CLEAR Urine pH 6.0 (5.0-8.0) Ur Specific Keyes 1.020 (1.001-1.035) Urine Protein NEGATIVE (NEGATIVE) mg/dL Urine Glucose (UA) NEGATIVE (NEGATIVE) mg/dL Urine Ketones NEGATIVE (NEGATIVE) mg/dL Urine Occult Blood NEGATIVE (NEGATIVE) Urine Nitrite NEGATIVE (NEGATIVE) Urine Bilirubin NEGATIVE (NEGATIVE) Urine Urobilinogen 0.2 (<2.0) EU/dL Ur Leukocyte Esterase NEGATIVE (NEGATIVE) Urine RBC 0-3 (0-2/HPF) Urine WBC 0-3 (0-5/HPF) Ur Epithelial Cells RARE (NONE-FEW) Urine Bacteria FEW (NEGATIVE) Meds: Medications Discontinued Medications Generic Name Dose Route Start Last Admin Trade Name Freq PRN Reason Stop Dose Admin Sodium Chloride 1,000 mls @ 999 mls/hr 03/16/19 07:59 03/16/19 08:06 Normal Saline IV 03/16/19 08:59 999 mls/hr .BOLUS ONE Administration Ketorolac Tromethamine 30 mg 03/16/19 07:58 03/16/19 08:07 Toradol IVPUSH 03/16/19 07:59 30 mg ONETIME ONE Administration Lidocaine 700 mg 03/16/19 07:57 03/16/19 08:07 Lidoderm 5% TOP 03/16/19 07:58 700 mg ONETIME ONE Administration Methylprednisolone Sodium Succinate 125 mg 03/16/19 07:58 03/16/19 08:39 Solu-Medrol IVPUSH 03/16/19 07:59 125 mg ONETIME ONE Administration Departure - Departure Time of Disposition: 11:00 Disposition: Home, Self-Care 01 Condition: Fair Clinical Impression: Pain in lower back - Discharge Information Instructions: Acute Back Pain, Adult Referrals: PCP,None [Primary Care Provider] - Forms: ED Department Discharge Additional Instructions: Ice and/or heat. Ibuprofen with meals. Lidoderm and meds as prescribed. Follow-up with PCP if not improving. Return to ER if worse. Care Plan Goals: The following information is given to patients seen in the emergency department who are being discharged to home. This information is to outline your options for follow-up care. We provide all patients seen in our emergency department with a follow-up referral. The need for follow-up, as well as the timing and circumstances, are variable depending upon the specifics of your emergency department visit. If you don't have a primary care physician on staff, we will provide you with a referral. We always advise you to contact your personal physician following an emergency department visit to inform them of the circumstance of the visit and for follow-up with them and/or the need for any referrals to a consulting specialist. The emergency department will also refer you to a specialist when appropriate. This referral assures that you have the opportunity for follow-up care with a specialist. All of these measure are taken in an effort to provide you with optimal care, which includes your follow-up. Under all circumstances we always encourage you to contact your private physician who remains a resource for coordinating your care. When calling for follow-up care, please make the office aware that this follow-up is from your recent emergency room visit. If for any reason you are refused follow-up, please contact the [facility] Emergency Department at and asked to speak to the emergency department charge nurse. Sepsis Event Note - Focused Exam Vital Signs: Vital Signs Temp Pulse Resp BP Pulse Ox 03/16/19 07:50 36.2 C 88 17 155/97 H 99 Date Exam was Performed: 03/16/19 Time Exam was Performed: 10:59
[2019-03-16] MEDS ORDERED: Lidocaine 5% 700 MG Patch TOP ONE (07:57)
[2019-03-16] MEDS ORDERED: Ketorolac 30 MG/ML SDV IVPUSH ONE (07:58)
[2019-03-16] MEDS ORDERED: methylPREDNISolone Sodium Succinate 125 MG/2 ML SDV IVPUSH ONE (07:58)
[2019-03-16] MEDS ORDERED: Sodium Chloride 0.9% 1,000 ML IV ONE (07:59)
[2019-03-16 09:32] LABS: BLOOD UREA NITROGEN,BUN 14 mg/dL (7.0-18.0); CARBON DIOXIDE,CO2 23.6 mmol/L (21.0-32.0); CHLORIDE,CL 109 mmol/L (98-107); GLUCOSE RANDOM 105 mg/dL (74-106); SODIUM,NA 142 mmol/L (136-148)
[2019-03-16 11:23] VITALS: BP 147/94; PULSE 85
== END 2019-03-16 11:25 | disposition home or self-care (01) ==
LOC: MW.ED 07:36
DX: M54.5 Low back pain (principal); I10 Essential (primary) hypertension; I25.2 Old myocardial infarction
CPT/HCPCS: 36415; 80053; 81001; 85025; 96361; 96374; 96375; 99283; A9270; J1885; J2930; J7030

== ENCOUNTER 2019-09-08 21:24 | Emergency (ER) | payer BC ==
[2019-09-08 21:40] VITALS: BP 161/88; PULSE 88
[2019-09-08] MEDS ORDERED: Penicillin V Potassium Soln 250 MG/5 ML 100 ML Bottle PO ONE (22:32)
--- NOTE | 2019-09-08 22:33 | EDM.PDOC ---
ED HPI GENERAL MEDICAL PROBLEM - General Chief Complaint: General Stated Complaint: TOOTH PAIN Time Seen by Provider: 09/08/19 22:33 - History of Present Illness INITIAL COMMENTS - FREE TEXT/NARRATIVE: l history of present illness: [] Review of systems: As per history of present illness and below otherwise all systems reviewed and negative. Past medical history: As per history of present illness and as reviewed below otherwise noncontributory. Surgical history: As per history of present illness and as reviewed below otherwise noncontributory. Social history: No reported history of drug or alcohol abuse. Family history: As per history of present illness and as reviewed below otherwise noncontributory. Physical exam: Constitutional - well developed, well-nourished and in no acute distress HEENT -there is swelling about the periodontal tissues around tooth #17 and 18. Tooth #17 is buried and broken 18 is missing. There is swelling of the lateral perimandibular soft tissues of the face. There is no trismus. He is able to swallow his own saliva. His voice is normal. Normocephalic, no evidence of trauma - external nose and mouth normal hip swelling is noted above.- no mass in neck and no JVD - mucosae moist EYES - full EOM, PERRL, no icterus - no evidence of inflammation, injection, or drainage Respiratory - no respiratory distress, equal bilateral expansion Cardiovascular - Regular Rhythm with S1 and S2 appreciated and no murmur, gallop or rub. Musculoskeletal no gross deformity of long bones or joints - no tenderness, swelling or edema Neurologic - Alert and oriented times four - CN II-XII grossly intact - motor sensory and coordination symmetrically normal Psychiatric - appropriate mood and affect with normal thought content Hematologic - No petechiae or purpura - mucosa appropriate color and sclera not pale - normal nail bed color and refill Integument - no rash or evidence of trauma - normal turgor Diagnostics: [] Therapeutics: [] Impression: Periodontal disease, buried tooth, pain [] Plan: Antibiotics and dental follow-up. [] Definitive disposition and diagnosis as appropriate pending reevaluation and review of above. left lower jaw Pain Score (Numeric/FACES): 8 - Related Data Allergies Allergy/AdvReac Type Severity Reaction Status Date / Time No Known Allergies Allergy Verified 09/08/19 21:40 Home Meds: Home Meds Acetaminophen with Codeine [Tylenol with Codeine #3 Tablet] 2 each PO Q4HR PRN #14 tablet 09/08/19 [Rx] Ibuprofen [Motrin] 2 tab PO Q4H PRN 09/08/19 [History] Penicillin V Potassium [Veetids] 500 mg PO BID #20 tab 09/08/19 [Rx] Past Medical History - Past Health History Medical/Surgical History: Denies Medical/Surgical History HEENT History: Reports: None Cardiovascular History: Reports: Hypertension Other Cardiovascular History: recently was worked up for chest pain at [place], he reports they didn't "find anything" Respiratory History: Reports: Other (See Below) Other Respiratory History: Latent TB- treatment 1 year ago Gastrointestinal History: Reports: None Genitourinary History: Reports: None 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 Musculoskeletal History: Reports: None Neurological History: Reports: None Psychiatric History: Reports: None Endocrine/Metabolic History: Reports: None Hematologic History: Reports: None Immunologic History: Reports: None Oncologic (Cancer) History: Reports: None Dermatologic History: Reports: None - Infectious Disease History Infectious Disease History: Reports: TB Other Infectious Disease History: latent TB treatment 1 year ago - Past Surgical History Head Surgeries/Procedures: Reports: None Social & Family History - Family History Family Medical History: Noncontributory - Tobacco Use Smoking Status *Q: Never Smoker - Caffeine Use Caffeine Use: Reports: None - Recreational Drug Use Recreational Drug Use: No ED ROS GENERAL - Review of Systems Review Of Systems: Comprehensive ROS is negative, except as noted in HPI. ED EXAM, GENERAL - Physical Exam Exam: See Below Free Text/Narrative:: Physical exam as in the HPI Course - Vital Signs Last Recorded V/S: Last Vital Signs Temp 98.1 F 09/08/19 21:37 Pulse 88 09/08/19 21:37 Resp 16 09/08/19 21:37 BP 161/88 H 09/08/19 21:37 Pulse Ox 97 09/08/19 21:37 - Orders/Labs/Meds Meds: Medications Discontinued Medications Generic Name Dose Route Start Last Admin Trade Name Freq PRN Reason Stop Dose Admin Penicillin V Potassium 500 mg 09/08/19 22:32 Veetids 250 Mg/5 Ml Soln PO 09/08/19 22:33 ONETIME ONE Departure - Departure Time of Disposition: 22:43 Disposition: Home, Self-Care 01 Condition: Good Clinical Impression: Periodontal disease, Broken tooth, Periodontal abscess - Discharge Information Instructions: Dental Extraction, [id number] Referrals: PCP,None [Primary Care Provider] - Forms: ED Department Discharge Additional Instructions: The following information is given to patients seen in the emergency department who are being discharged to home. This information is to outline your options for follow-up care. We provide all patients seen in our emergency department with a follow-up referral. The need for follow-up, as well as the timing and circumstances, are variable depending upon the specifics of your emergency department visit. If you don't have a primary care physician on staff, we will provide you with a referral. We always advise you to contact your personal physician following an emergency department visit to inform them of the circumstance of the visit and for follow-up with them and/or the need for any referrals to a consulting specialist. The emergency department will also refer you to a specialist when appropriate. This referral assures that you have the opportunity for follow-up care with a specialist. All of these measure are taken in an effort to provide you with optimal care, which includes your follow-up. Under all circumstances we always encourage you to contact your private physician who remains a resource for coordinating your care. When calling for follow-up care, please make the office aware that this follow-up is from your recent emergency room visit. If for any reason you are refused follow-up, please contact the [facility] Emergency Department at and asked to speak to the emergency department charge nurse. Contact a dentist please can see them. Sepsis Event Note (ED) - Evaluation Sepsis Screening Result: No Definite Risk - Focused Exam Vital Signs: Vital Signs Temp Pulse Resp BP Pulse Ox 09/08/19 21:37 98.1 F 88 16 161/88 H 97
[2019-09-08] MEDS ORDERED: Penicillin V Potassium 500 MG Tab PO ONE (23:00)
== END 2019-09-08 23:04 | disposition home or self-care (01) ==
LOC: MW.ED 21:24
DX: K05.219 Aggressive periodontitis, localized, unspecified severity (principal); K03.81 Cracked tooth; I10 Essential (primary) hypertension
CPT/HCPCS: 99282; A9270